=== PATIENT | female | born 1975 | race Caucasian/White ===

== ENCOUNTER 2017-03-12 20:55 | Inpatient (IN) | payer OTHER ==
--- NOTE | 2017-03-12 21:36 | ED ---
Lower Extremity Injury HPI - General Chief Complaint: Extremity Injury, Lower Stated Complaint: Swollen foot Time Seen by Provider: 03/12/17 21:06 Source: patient, family Mode of arrival: wheelchair Limitations: no limitations - History of Present Illness Initial Comments: This patient is a 41-year-old woman presenting with complaint of right foot pain and swelling. This was all brought on after she stepped on a toothpick on Tuesday. She sustained a puncture to the plantar aspect of the right foot below the third MCP joint. She states that over the interim she has had increasing pain and swelling. She was seen at the clinic yesterday and she was started on Bactrim. She has been taking ibuprofen for pain. She states that despite these measures she has had increasing pain and swelling. She has not noticed fever, chest pain, shortness of breath, palpitations or any other systemic symptoms. MD Complaint: foot injury Onset/Timin -: days(s) Injury: Foot: Right Type of Injury: puncture wound Place: home Severity: severe Improves With: NSAID Worsens With: weight bearing Context: other Associated Symptoms: able to partially bear weight Treatments Prior to Arrival: NSAIDS, other (Antibiotic) - Related Data Allergies Allergy/AdvReac Type Severity Reaction Status Date / Time prochlorperazine Allergy Unknown Verified 03/12/17 21:04 [From Compazine] prochlorperazine edisylate Allergy Unknown Verified 03/12/17 21:04 [From Compazine] prochlorperazine maleate Allergy Unknown Verified 03/12/17 21:04 [From Compazine] Review of Systems ROS Statement: Those systems with pertinent positive or pertinent negative responses have been documented in the HPI. ROS Other: All systems not noted in ROS Statement are negative. Constitutional: Denies: fever, chills Respiratory: Denies: cough, dyspnea Cardiovascular: Denies: chest pain, palpitations Musculoskeletal: Reports: as per HPI, joint swelling, arthralgia Skin: Reports: lesions, change in color (Erythema) Neurological: Denies: weakness, numbness, paresthesias Past Medical History Past Medical History: Fibromyalgia History of Any Multi-Drug Resistant Organisms: None Reported Past Surgical History: Section, Orthopedic Surgery Additional Past Surgical History / Comment(s): right knee sx, joint disorder Past Psychological History: Depression Smoking Status: Current every day smoker Past Alcohol Use History: None Reported Past Drug Use History: None Reported General Exam Limitations: no limitations General appearance: alert, in no apparent distress Head exam: Present: atraumatic, normocephalic Respiratory exam: Present: normal lung sounds bilaterally. Absent: respiratory distress, wheezes, rales, rhonchi, stridor Cardiovascular Exam: Present: regular rate, normal rhythm, normal heart sounds, other (Pedal pulses and capillary refill to the right foot normal). Absent: systolic murmur, diastolic murmur, rubs, gallop Extremities exam: Present: tenderness, normal capillary refill. Absent: pedal edema, calf tenderness Right Knee exam: Present: normal inspection Lower Leg exam: Present: normal inspection Ankle exam: Present: normal inspection Foot/Toe exam: Present: tenderness, swelling, puncture wound Neurovascular tendon exam: Present: no vascular compromise. Absent: pulse deficit, abnormal cap refill, motor deficit, sensory deficit, pallor Neurological exam: Present: alert. Absent: motor sensory deficit Skin exam: Present: warm, dry, erythema Course Vital Signs 03/12/17 03/12/17 03/13/17 21:01 22:47 00:23 Temperature 94 F L 99.1 F 98.0 F Pulse Rate 94 80 Respiratory 18 18 Rate Blood Pressure 133/81 129/72 O2 Sat by Pulse 100 100 Oximetry 03/13/17 02:07 Temperature 98.7 F Pulse Rate 89 Respiratory 18 Rate Blood Pressure 115/64 O2 Sat by Pulse 100 Oximetry Medical Decision Making - Medical Decision Making This patient is a 41-year-old woman with puncture wound to the right foot with significant infection. She is started on antibiotics and analgesic medicine. I did attempt to on roof the pus collection. The patient did have difficulty tolerating this as her foot is tender even to the lightest of touch. Eye clean the skin. Using a scalpel I unroofed the pus collection through the necrotic epidermal layer. There was probably 2-3 mL of pus that drained immediately, the patient did not tolerate attempt to express further pus. Nursing staff then had patient soak her foot. - Lab Data Result diagrams: 03/12/17 22:32 03/12/17 22:32 Lab Results 03/12/17 03/12/17 03/12/17 Range/Units 22:32 22:32 22:32 WBC 17.5 H (3.8-10.6) k/uL RBC 4.57 (3.80-5.40) m/uL Hgb 14.3 (11.4-16.0) gm/dL Hct 42.1 (34.0-46.0) % MCV 92.2 (80.0-100.0) fL MCH 31.2 (25.0-35.0) pg MCHC 33.9 (31.0-37.0) g/dL RDW 12.1 (11.5-15.5) % Plt Count 288 (150-450) k/uL Neutrophils % 83 % Lymphocytes % 10 % Monocytes % 5 % Eosinophils % 1 % Basophils % 0 % Neutrophils # 14.5 H (1.3-7.7) k/uL Lymphocytes # 1.8 (1.0-4.8) k/uL Monocytes # 0.8 (0-1.0) k/uL Eosinophils # 0.2 (0-0.7) k/uL Basophils # 0.1 (0-0.2) k/uL ESR 60 H (0-20) mm/hr Sodium 143 (137-145) mmol/L Potassium 3.8 (3.5-5.1) mmol/L Chloride 106 (98-107) mmol/L Carbon Dioxide 24 (22-30) mmol/L Anion Gap 13 mmol/L BUN 7 (7-17) mg/dL Creatinine 0.90 (0.52-1.04) mg/dL Est GFR (MDRD) Af Amer >60 (>60 ml/min/1.73 sqM) Est GFR (MDRD) Non-Af >60 (>60 ml/min/1.73 sqM) Glucose 88 (74-99) mg/dL Lactic Ac Sepsis Rflx Plasma Lactic Acid German 2.4 H* (0.7-2.0) mmol/L Calcium 10.2 (8.4-10.2) mg/dL 03/12/17 Range/Units 23:35 WBC (3.8-10.6) k/uL RBC (3.80-5.40) m/uL Hgb (11.4-16.0) gm/dL Hct (34.0-46.0) % MCV (80.0-100.0) fL MCH (25.0-35.0) pg MCHC (31.0-37.0) g/dL RDW (11.5-15.5) % Plt Count (150-450) k/uL Neutrophils % % Lymphocytes % % Monocytes % % Eosinophils % % Basophils % % Neutrophils # (1.3-7.7) k/uL Lymphocytes # (1.0-4.8) k/uL Monocytes # (0-1.0) k/uL Eosinophils # (0-0.7) k/uL Basophils # (0-0.2) k/uL ESR (0-20) mm/hr Sodium (137-145) mmol/L Potassium (3.5-5.1) mmol/L Chloride (98-107) mmol/L Carbon Dioxide (22-30) mmol/L Anion Gap mmol/L BUN (7-17) mg/dL Creatinine (0.52-1.04) mg/dL Est GFR (MDRD) Af Amer (>60 ml/min/1.73 sqM) Est GFR (MDRD) Non-Af (>60 ml/min/1.73 sqM) Glucose (74-99) mg/dL Lactic Ac Sepsis Rflx Y Plasma Lactic Acid German (0.7-2.0) mmol/L Calcium (8.4-10.2) mg/dL Disposition Clinical Impression: Puncture wound, Foot infection Disposition: ADMITTED IP TO THIS HOSP Condition: Fair Referrals: Gladis Bertrand DO [Primary Care Provider] - 1-2 days
--- NOTE | 2017-03-12 22:20 | XR ---
EXAMINATION TYPE: XR foot limited RT DATE OF EXAM: 03/12/2017 COMPARISON: NONE HISTORY: 41-year-old female stepped on toothpick yesterday, increased redness and swelling, rule out foreign body TECHNIQUE: 2 views FINDINGS: There appears to be soft tissue swelling along the ball of the foot. No radiopaque foreign body is id entified. Tiny plantar calcaneal spur. No acute fracture, subluxation, or dislocation. IMPRESSION: Soft tissue swelling along the ball of the foot. No radiopaque retained foreign body is identified. N o acute osseous abnormality seen. If there is persistent clinical concern for retained wood fragment, consider targeted ultrasound.
[2017-03-12] MEDS ORDERED: IV VANCOMYCIN PER PHARMACY 1 EACH MISC MISCELLANE PRN (22:28)
[2017-03-12] MEDS ORDERED: SODIUM CHLORIDE 0.9% 500 ML IV STA (22:28)
[2017-03-12] MEDS ORDERED: MORPHINE SULFATE 4 MG/ML SYRINGE IV STA (22:28)
[2017-03-12] MEDS ORDERED: PIPERACILLIN-TAZOBACTAM 3.375 GM in DEXTROSE/WATER 1 50ML.BAG IVPB STA (22:28)
[2017-03-12 22:59] LABS: Basophils # (A) 0.1 k/uL (0-0.2); Basophils % (A) 0 %; CH 30.8; CHCM 33.5; Eosinophils # (A) 0.2 k/uL (0-0.7); Eosinophils % (A) 1 %; HCT 42.1 % (34.0-46.0); HGB 14.3 gm/dL (11.4-16.0); Luc # (Auto) 0.14; Luc % (Auto) 1; Lymphocytes # (A) 1.8 k/uL (1.0-4.8); Lymphocytes % (A) 10 %; MCH 31.2 pg (25.0-35.0); MCHC 33.9 g/dL (31.0-37.0); MCV 92.2 fL (80.0-100.0); Mean Platelet Volume 7.4; Monocytes # (A) 0.8 k/uL (0-1.0); Monocytes % (A) 5 %; Neutrophils # (A) 14.5 k/uL (1.3-7.7); Neutrophils % (A) 83 %; RBC 4.57 m/uL (3.80-5.40); RDW 12.1 % (11.5-15.5); WBC 17.5 k/uL (3.8-10.6); WBC (Perox) 17.66
[2017-03-12] MEDS ORDERED: VANCOMYCIN 1,000 MG in SODIUM CHLORIDE 0.9% 250 ML IVPB ONE (23:00)
[2017-03-12 23:07] LABS: Anion Gap 13 mmol/L; Blood Urea Nitrogen 7 mg/dL (7-17); Calcium 10.2 mg/dL (8.4-10.2); Carbon Dioxide 24 mmol/L (22-30); Chloride 106 mmol/L (98-107); Glucose 88 mg/dL (74-99); Non-African American GFR(MDRD) >60 (>60 ml/min/1.73 sqM); Potassium 3.8 mmol/L (3.5-5.1); Sodium 143 mmol/L (137-145)
[2017-03-12 23:44] LABS: Erythrocyte Sedimentation Rate 60 mm/hr (0-20)
[2017-03-13] MEDS ORDERED: SODIUM CHLORIDE 0.9% 1,000 ML IV ONE (00:13)
[2017-03-13] MEDS ORDERED: MORPHINE SULFATE 4 MG/ML SYRINGE IV STA (01:53)
[2017-03-13] MEDS ORDERED: VANCOMYCIN 1,000 MG in SODIUM CHLORIDE 0.9% 250 ML IVPB ONE (03:00)
[2017-03-13] MEDS ORDERED: NALOXONE 0.4 MG/ML 1 ML VIAL IV PRN (04:08)
[2017-03-13] MEDS ORDERED: ACETAMINOPHEN TAB 325 MG TAB PO PRN (04:08)
[2017-03-13] MEDS: MORPHINE SULFATE 4 MG/ML SYRINGE IV PRN ×2 (05:34→09:26)
[2017-03-13] MEDS: SODIUM CHLORIDE 0.9% 1,000 ML IV SCH ×3 (05:36→21:34)
[2017-03-13] MEDS: PIPERACILLIN-TAZOBACTAM 3.375 GM in DEXTROSE/WATER 1 50ML.BAG IVPB SCH ×2 (07:33→17:14)
[2017-03-13] MEDS: FAMOTIDINE 20 MG TAB PO SCH ×2 (07:40→21:33)
--- NOTE | 2017-03-13 09:53 | P.HPIM ---
History of Present Illness H&P Date: 03/13/17 This patient is a 41-year-old woman presenting with complaint of right foot pain and swelling. This was all brought on after she stepped on a toothpick on Tuesday. She sustained a puncture to the plantar aspect of the right foot below the third MCP joint. She states that she had increasing pain and swelling. She was seen at the clinic yesterday and she was started on Bactrim. She has been taking ibuprofen for pain. She states that despite these measures she has had increasing pain and swelling. She has not noticed fever, chest pain, shortness of breath, palpitations or any other systemic symptoms. In the emergency room patient was seen and evaluated, she had incision and drainage of her foot pulse collection by emergency room physician she was started on IV Zosyn and IV vancomycin and was admitted to medical floor. Surgical consultation was requested in the emergency room Past Medical History Past Medical History: Fibromyalgia Additional Past Medical History / Comment(s): TMJ, hyper mobile joint disorder History of Any Multi-Drug Resistant Organisms: None Reported Past Surgical History: Section, Orthopedic Surgery Additional Past Surgical History / Comment(s): right knee sx, joint disorder Past Anesthesia/Blood Transfusion Reactions: No Reported Reaction Past Psychological History: No Psychological Hx Reported, Depression Smoking Status: Current every day smoker Past Alcohol Use History: None Reported Past Drug Use History: None Reported - Past Family History Father Family Medical History: Asthma, Cancer Additional Family Medical History / Comment(s): two types of cancer Mother Family Medical History: Myocardial Infarction ([place]) Additional Family Medical History / Comment(s): from heart attack Medications and Allergies Home Medications Medication Instructions Recorded Confirmed Type Pseudoephedrine HCl [Sudafed] 30 mg PO Q4HR PRN 03/13/17 03/13/17 History Allergies Allergy/AdvReac Type Severity Reaction Status Date / Time prochlorperazine Allergy Unknown Verified 03/13/17 08:22 [From Compazine] prochlorperazine edisylate Allergy Unknown Verified 03/13/17 08:22 [From Compazine] prochlorperazine maleate Allergy Unknown Verified 03/13/17 08:22 [From Compazine] Physical Exam Vitals: Vital Signs Temp Pulse Pulse Resp BP BP BP 03/13/17 07:29 98 F 73 16 104/57 03/13/17 05:13 97.9 F 61 16 116/78 03/13/17 04:45 98.5 F 71 18 114/67 03/13/17 02:07 98.7 F 89 18 115/64 03/13/17 00:23 98.0 F 80 18 129/72 03/12/17 22:47 99.1 F 03/12/17 21:01 94 F L 94 18 133/81 Pulse Ox 03/13/17 07:29 97 03/13/17 05:13 96 03/13/17 04:45 100 03/13/17 02:07 100 03/13/17 00:23 100 03/12/17 22:47 03/12/17 21:01 100 Intake and Output 03/12/17 03/13/17 03/13/17 22:59 06:59 14:59 Intake Total 1200 Balance 1200 Intake: Amount of Fluid Infused ( 1200 ml) Other: # Voids 1 Weight 58.967 kg In general patient is alert and oriented 3 in no apparent distress HEENT head normocephalic and atraumatic Neck is supple no JVD no goiter no lymphadenopathy Chest exam is clear to auscultation no crackles no wheezing Cardiac exam reveals regular heart sounds S1 and S2 no gallops no murmurs Abdomen is soft nontender no organomegaly with normal bowel sounds Extremity exam reveals no edema no cyanosis or clubbing Right foot exam reveals a puncture wound in the plantar aspect of the right foot below the third MCP joint Results CBC & Chem 7: 03/12/17 22:32 03/12/17 22:32 Labs: Abnormal Lab Results - Last 24 Hours (Table) 03/12/17 03/12/17 03/13/17 Range/Units 22:32 22:32 04:02 WBC 17.5 H (3.8-10.6) k/uL Neutrophils # 14.5 H (1.3-7.7) k/uL ESR 60 H (0-20) mm/hr Plasma Lactic Acid German 2.4 H* 0.6 L (0.7-2.0) mmol/L Thrombosis Risk Factor Assmnt - Choose All That Apply Any of the Below Risk Factors Present?: No Other congenital or acquired thrombophilia - If yes, enter type in comment: No Assessment and Plan Plan: #1 right foot cellulitis post acute puncture wound to the plantar aspect of the right foot, there is evidence of sepsis was elevated white blood count of 17.5 and elevated lactic acid at 2.4 on presentation. There is evidence of abscess was possible collection in the foot. At this time plan is to continue with IV Zosyn and IV vancomycin awaiting culture results Surgical consultation and infectious disease consultation are following #2 underlying history of tobacco abuse patient was counseled to quit smoking
--- NOTE | 2017-03-13 10:12 | P.PN ---
Progress Note - Text Consulted general surgery for right plantar foot infection. Please defer to vascular surgery Dr. Heredia or Orthopedics. Thank you
[2017-03-13] MEDS: VANCOMYCIN 1,000 MG in SODIUM CHLORIDE 0.9% 250 ML IVPB SCH (11:30)
[2017-03-13] MEDS: ONDANSETRON 4 MG/2 ML VIAL IVP PRN ×2 (11:30→20:53)
[2017-03-13] MEDS: HYDROmorphone 1 MG/ML 1 ML SYRINGE IVP PRN ×2 (11:48→17:14)
--- NOTE | 2017-03-13 13:57 | P.CNOR ---
History of Present Illness - HPI Consult date: 03/13/17 History of present illness: This is a pleasant 41-year-old female who is admitted for right foot infection. Orthopedics is consulted for further evaluation. Patient states one week ago she stepped on a toothpick at home. Patient states her removed the toothpick and they believe they removed the entire thing. Patient states she was in a lot of pain and was unable to walk on the right foot. Patient noticed increasing swelling and redness over the next few days and presented to an urgent care clinic on 03/11/2017. The patient was put on Bactrim at this point was told to follow-up in the ER if her symptoms do not improve by the next day. Patient presented to the on 03/12/2017. A bedside I&D was attempted but patient could not tolerate this due to the pain. Patient was admitted for IV antibiotics, infectious disease and surgical consult. Patient denies any fever/chills, numbness, weakness, tingling. Patient denies any history of MRSA. Patient is a smoker. Patient does admit to some mild nausea. Patient states her tetanus shot was updated on Tuesday at the urgent care clinic. Review of Systems See HPI. Past Medical History Past Medical History: Fibromyalgia Additional Past Medical History / Comment(s): TMJ, hyper mobile joint disorder History of Any Multi-Drug Resistant Organisms: None Reported Past Surgical History: Section, Orthopedic Surgery Additional Past Surgical History / Comment(s): right knee sx, joint disorder Past Anesthesia/Blood Transfusion Reactions: No Reported Reaction Past Psychological History: No Psychological Hx Reported, Depression Smoking Status: Current every day smoker Past Alcohol Use History: None Reported Past Drug Use History: None Reported - Past Family History Father Family Medical History: Asthma, Cancer Additional Family Medical History / Comment(s): two types of cancer Mother Family Medical History: Myocardial Infarction ([place]) Additional Family Medical History / Comment(s): from heart attack Medications and Allergies Home Medications Medication Instructions Recorded Confirmed Type Pseudoephedrine HCl [Sudafed] 30 mg PO Q4HR PRN 03/13/17 03/13/17 History Allergies Allergy/AdvReac Type Severity Reaction Status Date / Time prochlorperazine Allergy Unknown Verified 03/13/17 08:22 [From Compazine] prochlorperazine edisylate Allergy Unknown Verified 03/13/17 08:22 [From Compazine] prochlorperazine maleate Allergy Unknown Verified 03/13/17 08:22 [From Compazine] Physical Examination On inspection there is swelling to the dorsal and plantar aspects of the right foot. There is erythema and induration to the ball of the right foot just below the third MTP joint. There is purulent drainage from a puncture wound in this area. This area is very sensitive to light touch. Patient is able to move the right toes but this causes pain. Sensation intact to the right foot and toes. Dorsalis pedis and posterior tibial pulses are 2+. Neurovascular status of the right lower extremity is intact. Results X-rays the right foot were reviewed showing soft tissue swelling. No foreign body, fracture or dislocation. - Labs Labs: Abnormal Lab Results - Last 24 Hours (Table) 03/12/17 03/12/17 03/13/17 Range/Units 22:32 22:32 04:02 WBC 17.5 H (3.8-10.6) k/uL Neutrophils # 14.5 H (1.3-7.7) k/uL ESR 60 H (0-20) mm/hr Plasma Lactic Acid German 2.4 H* 0.6 L (0.7-2.0) mmol/L H & H 03/12/17 Range/Units 22:32 Hgb 14.3 (11.4-16.0) gm/dL Hct 42.1 (34.0-46.0) % Result Diagrams: 03/12/17 22:32 03/12/17 22:32 Assessment and Plan (1) Foot infection Status: Acute (2) Puncture wound Status: Acute (3) Abscess of right foot Status: Acute Plan: #1. Continue IV antibiotics and pain control. #2. Warm compresses to the right foot. #3. Continue to elevate the right lower extremity. #4. Infectious disease consult pending. #5. Nothing by mouth after midnight. #6. No surgical intervention planned at this time. If patient does not show significant improvement she may need an I&D procedure tomorrow. #7. Will continue to follow patient closely.
[2017-03-13] MEDS ORDERED: KETOROLAC 30 MG/ML 1 ML VIAL IVP SCH (17:17)
[2017-03-13] MEDS: KETOROLAC 30 MG/ML 1 ML VIAL IVP SCH (17:34)
--- NOTE | 2017-03-13 23:02 | P.CONS ---
History of Present Illness - Reason for Consult Consult date: 03/13/17 - Chief Complaint Pain right foot - History of Present Illness 41-year-old woman presents to the emergency center with a several-day history of increasing pain to the right foot. The patient relates that the carpeted floor she stepped on a toothpick. The patient's was able to extract the tooth pick. If her stay and thought they had gotten the whole thing. However now that they've thought about [place] as an carpeted. They really do not know how much was present and if they have truly extracted the entire foreign body. The patient presented hospital because she was no longer able to walk on the foot because it was so painful. Presented to Hospital gives her great challenges because they have a 13-year-old son who is profoundly mentally challenged. Fortunately the patient's and multiple family members living with them and can help with care. Patient has fibromyalgia and is in severe pain with the foot injury. It is starting to drain. The foot is very swollen and has intense pain upon manipulation. She had a low-grade fever. Been no chill or rigor. She's not had a problem like this in the past. Review of Systems Patient has had subjective fever and chills without sweats HEENT:Denies headache or acute visual change. Denies sinus or mouth discomforts. Denies neck stiffness or pain. Denies significant oral cavity pain. Denies difficulty on swallowing. Lungs: Denies change of shortness of breath, cough, sputum production, or hemoptysis. She is a chronic smoker Cardiovascular: Denies significant shortness of breath, chest pain, chest wall pain, orthopnea, dyspnea on exertion, syncope Gastrointestinal:Denies nausea, vomiting, diarrhea, constipation, hematemesis, melena, hematochezia. No no significant change of bowel habit noticed. Musculoskeletal: As for myalgia with chronic pain and severe pain to her right foot is noted in the HPI Skin: Wound right foot Neuro: Denies headache or visual change. Denies any new onset weakness or difficulty with ambulation. Denies falls or seizures. Psychiatric: Chronic anxiety Endocrine: Chronic fatigue fatigue, denies significant weight loss or weight gain. Past Medical History Past Medical History: Fibromyalgia Additional Past Medical History / Comment(s): TMJ, hyper mobile joint disorder History of Any Multi-Drug Resistant Organisms: None Reported Past Surgical History: Section, Orthopedic Surgery Additional Past Surgical History / Comment(s): right knee sx, joint disorder Past Anesthesia/Blood Transfusion Reactions: No Reported Reaction Past Psychological History: No Psychological Hx Reported, Depression Additional Psychological History / Comment(s): and lives in the family home with her , her son and multiple other family members. She is a primary caregiver of her son. Ongoing tobacco user. Denies alcohol use or recreational drug use. No experience. No international travel. No animal exposures Smoking Status: Current every day smoker Past Alcohol Use History: None Reported Past Drug Use History: None Reported - Past Family History Father Family Medical History: Asthma, Cancer Additional Family Medical History / Comment(s): two types of cancer Mother Family Medical History: Myocardial Infarction ([place]) Additional Family Medical History / Comment(s): from heart attack Medications and Allergies Home Medications and Allergies Comment(s): Current Medications Acetaminophen (Tylenol Tab) 650 mg PO Q6HR PRN PRN Reason: Mild Pain or Fever > 100.5 Famotidine (Pepcid) 20 mg PO BID [facility] Last Admin: 03/13/17 21:33 Dose: 20 mg Hydromorphone HCl (Dilaudid) 1 mg IVP Q3HR PRN PRN Reason: Severe Pain Last Admin: 03/13/17 17:14 Dose: 1 mg Sodium Chloride (Saline 0.9%) 1,000 mls @ 125 mls/hr IV .Q8H [facility] Last Admin: 03/13/17 21:34 Dose: 125 mls/hr Piperacillin/Tazobactam/ (Dextrose 3.375 gm/ IV Solution) 50 mls @ 12.5 mls/hr IVPB Q8HR [facility] Last Admin: 03/13/17 17:14 Dose: 12.5 mls/hr Vancomycin HCl 1,000 mg/ (Sodium Chloride) 250 mls @ 125 mls/hr IVPB Q16H [facility] Last Admin: 03/13/17 11:30 Dose: 125 mls/hr Ketorolac Tromethamine (Toradol) 30 mg IVP Q6HR [facility] Stop: 03/18/17 18:01 Last Admin: 03/13/17 17:34 Dose: 30 mg Naloxone HCl (Narcan) 0.2 mg IV Q2M PRN PRN Reason: Opioid Reversal Ondansetron HCl (Zofran) 4 mg IVP Q8HR PRN PRN Reason: Nausea And Vomiting Last Admin: 03/13/17 20:53 Dose: 4 mg Home Medications Medication Instructions Recorded Confirmed Type Pseudoephedrine HCl [Sudafed] 30 mg PO Q4HR PRN 03/13/17 03/13/17 History Allergies Allergy/AdvReac Type Severity Reaction Status Date / Time prochlorperazine Allergy Unknown Verified 03/13/17 08:22 [From Compazine] prochlorperazine edisylate Allergy Unknown Verified 03/13/17 08:22 [From Compazine] prochlorperazine maleate Allergy Unknown Verified 03/13/17 08:22 [From Compazine] Physical Exam Vitals: Vital Signs Temp Pulse Pulse Pulse Pulse Resp BP 03/13/17 20:27 98.4 F 61 16 03/13/17 15:00 98.8 F 64 16 03/13/17 07:29 98 F 73 16 03/13/17 05:13 97.9 F 61 16 03/13/17 04:45 98.5 F 71 18 114/67 03/13/17 02:07 98.7 F 89 18 115/64 03/13/17 00:23 98.0 F 80 18 129/72 BP BP Pulse Ox 03/13/17 20:27 95/48 95 03/13/17 15:00 99/51 99 03/13/17 07:29 104/57 97 03/13/17 05:13 116/78 96 03/13/17 04:45 100 03/13/17 02:07 100 03/13/17 00:23 100 Intake and Output 03/13/17 03/13/17 03/13/17 06:59 14:59 22:59 Intake Total 1200 1000 Balance 1200 1000 Intake: IV 1000 Sodium Chloride 0.9% 1, 1000 000 ml @ 125 mls/hr IV . Q8H [facility] Rx#:[id number] Amount of Fluid Infused ( 1200 ml) Other: # Voids 1 HEENT: Anicteric conjunctiva are pink and moist nasal mucosa grossly intact without significant lesions, there is no thrush. Neck: The neck is supple without significant lymphadenopathy or thyromegaly. Lungs: Good bilateral air entry without significant crackles few scattered wheezes. There is no significant bronchial sounds. There is no egophony or dullness. Heart: Regular rate and rhythm with an audible S1-S2, no S3 no S4. There is no significant murmur click or rub, PMI was nondisplaced. Abdomen: Positive bowel sounds soft and nontender without palpable masses or organomegaly. There was no guarding or rebound. Extremities: The upper extremities have excellent pulses they are symmetric, no significant petechiae or telangiectasia. No splinter hemorrhages were noted. Left lower extremity is normal. Right low she wishes of the significant swelling of the plantar surface of the foot near the fourth metatarsal. Is an area of fluctuance that has a scant amount of seropurulent drainage. The foot itself is mildly swollen. There however is not a significant area of ascending erythema Neuro: Awake alert oriented to person place and time. There are no acute new gross focal sensory motor deficits. Results CBC & Chem 7: 03/12/17 22:32 03/12/17 22:32 Labs: Abnormal Lab Results - Last 24 Hours (Table) 03/12/17 03/12/17 03/13/17 Range/Units 22:32 22:32 04:02 WBC 17.5 H (3.8-10.6) k/uL Neutrophils # 14.5 H (1.3-7.7) k/uL ESR 60 H (0-20) mm/hr Plasma Lactic Acid German 2.4 H* 0.6 L (0.7-2.0) mmol/L Microbiology - Last 24 Hours (Table) 03/13/17 17:35 Wound Culture - Preliminary Foot - Right Laboratory Results WBC 17.5 k/uL (3.8-10.6) H 03/12/17 22:32 RBC 4.57 m/uL (3.80-5.40) 03/12/17 22:32 Hgb 14.3 gm/dL (11.4-16.0) 03/12/17 22:32 Hct 42.1 % (34.0-46.0) 03/12/17 22:32 MCV 92.2 fL (80.0-100.0) 03/12/17 22:32 MCH 31.2 pg (25.0-35.0) 03/12/17 22: MCHC 33.9 g/dL (31.0-37.0) 03/12/17 22:32 RDW 12.1 % (11.5-15.5) 03/12/17 22:32 Plt Count 288 k/uL (150-450) 03/12/17 22:32 Neutrophils % 83 % 03/12/17 22:32 Lymphocytes % 10 % 03/12/17 22:32 Monocytes % 5 % 03/12/17 22:32 Eosinophils % 1 % 03/12/17 22:32 Basophils % 0 % 03/12/17 22:32 Neutrophils # 14.5 k/uL (1.3-7.7) H 03/12/17 22:32 Lymphocytes # 1.8 k/uL (1.0-4.8) 03/12/17 22:32 Monocytes # 0.8 k/uL (0-1.0) 03/12/17 22:32 Eosinophils # 0.2 k/uL (0-0.7) 03/12/17 22:32 Basophils # 0.1 k/uL (0-0.2) 03/12/17 22:32 ESR 60 mm/hr (0-20) H 03/12/17 22:32 Sodium 143 mmol/L (137-145) 03/12/17 22:32 Potassium 3.8 mmol/L (3.5-5.1) 03/12/17 22:32 Chloride 106 mmol/L (98-107) 03/12/17 22:32 Carbon Dioxide 24 mmol/L (22-30) 03/12/17 22:32 Anion Gap 13 mmol/L 03/12/17 22:32 BUN 7 mg/dL (7-17) 03/12/17 22:32 Creatinine 0.90 mg/dL (0.52-1.04) 03/12/17 22:32 Est GFR (MDRD) Af Amer >60 (>60 ml/min/1.73 sqM) 03/12/17 22:32 Est GFR (MDRD) Non-Af >60 (>60 ml/min/1.73 sqM) 03/12/17 22:32 Glucose 88 mg/dL (74-99) 03/12/17 22:32 Lactic Ac Sepsis Rflx Y 03/12/17 23:35 Plasma Lactic Acid German 0.6 mmol/L (0.7-2.0) L 03/13/17 04:02 Calcium 10.2 mg/dL (8.4-10.2) 03/12/17 22:32 Microbiology 03/13/17 17:35 Foot - Right Wound Culture - Preliminary Assessment and Plan (1) Abscess of right foot Status: Acute (2) Splinter of foot without major open wound with infection Narrative/Plan: 41-year-old female presents to Hospital status post stepping on a toothpick. It first about a completely extracted the tooth pick. But it was in a carpet and they're actually unsure of how much invaded her body. In unsure how much they were able to remove. She has been seen by surgery. If she is not improved in the morning which I suspect will be the case she will then be taken every room for an incision and drainage of the foot. There is some drainage site cultures obtained. Antimicrobial therapy with Zosyn and vancomycin are being utilized with concerns for gram-negative infections related to the floor including enteric pathogens as well as staph and strep such as MRSA. Elevation of the limb at rest. Pain control be enhance with addition of Toradol. Local wound care as a dry dressing for now. She is offloaded as much as she can until her likely surgical intervention tomorrow. Status: Acute (3) Leukocytosis Status: Acute
[2017-03-14] MEDS: KETOROLAC 30 MG/ML 1 ML VIAL IVP SCH ×4 (00:47→19:37)
[2017-03-14] MEDS: PIPERACILLIN-TAZOBACTAM 3.375 GM in DEXTROSE/WATER 1 50ML.BAG IVPB SCH ×3 (00:48→19:28)
[2017-03-14] MEDS: VANCOMYCIN 1,000 MG in SODIUM CHLORIDE 0.9% 250 ML IVPB SCH ×2 (04:17→15:03)
[2017-03-14] MEDS: SODIUM CHLORIDE 0.9% 1,000 ML IV SCH ×3 (04:18→19:38)
[2017-03-14 07:14] LABS: Anion Gap 9 mmol/L; Blood Urea Nitrogen 8 mg/dL (7-17); Calcium 8.7 mg/dL (8.4-10.2); Carbon Dioxide 20 mmol/L (22-30); Chloride 111 mmol/L (98-107); Glucose 52 mg/dL (74-99); Non-African American GFR(MDRD) >60 (>60 ml/min/1.73 sqM); Potassium 3.9 mmol/L (3.5-5.1); Sodium 140 mmol/L (137-145)
[2017-03-14 07:20] LABS: Basophils % (A) 0 %; CH 31.4; CHCM 32.8; Eosinophils # (A) 0.1 k/uL (0-0.7); Eosinophils % (A) 1 %; HCT 32.2 % (34.0-46.0); HDW 2.51; Luc # (Auto) 0.14; Luc % (Auto) 2; Lymphocytes # (A) 1.6 k/uL (1.0-4.8); Lymphocytes % (A) 22 %; MCH 30.6 pg (25.0-35.0); MCHC 31.9 g/dL (31.0-37.0); MCV 96.2 fL (80.0-100.0); Monocytes # (A) 0.5 k/uL (0-1.0); Monocytes % (A) 6 %; Neutrophils % (A) 69 %; RBC 3.35 m/uL (3.80-5.40); WBC 7.2 k/uL (3.8-10.6); WBC (Perox) 7.28
[2017-03-14 07:26] LABS: HGB 10.3 gm/dL (11.4-16.0)
[2017-03-14] MEDS: FAMOTIDINE 20 MG TAB PO SCH ×2 (07:26→21:22)
--- NOTE | 2017-03-14 09:58 | P.PN ---
Subjective Principal diagnosis: Right foot infection, puncture wound, abscess this is a pleasant 41-year-old female who is admitted for right foot infection. Patient states her pain is well-controlled today. Patient states she is still feeling nauseous. Patient denies any numbness, weakness tingling, fever/ chills. Patient has no new complaints today. Objective - Vital Signs Vital signs: Vital Signs Temp 97.7 F 03/14/17 07:31 Pulse 73 03/14/17 07:50 Resp 16 03/14/17 07:31 BP 96/60 03/14/17 07:31 Pulse Ox 100 03/14/17 07:31 Intake & Output 03/13/17 03/14/17 03/14/17 18:59 06:59 18:59 Intake Total 1000 1500 Balance 1000 1500 Intake: IV 1000 1500 Sodium Chloride 0.9% 1, 1000 1500 000 ml @ 125 mls/hr IV . Q8H [facility] Rx#:[id number] Other: Voiding Method Toilet # Voids 1 2 - Exam On exam patient is alert and oriented 3 and is in no acute distress. There is swelling, erythema and induration to the ball of the right foot surrounding a puncture wound that is draining. There is no increasing surrounding erythema. The area is very tender to palpation. Patient is able to move the toes and patient has full foot and ankle motion. Posterior tibial and dorsalis pedis pulses are 2+. Neurovascular status is intact. - Labs CBC & Chem 7: 03/14/17 06:35 03/14/17 06:35 Labs: Abnormal Lab Results - Last 24 Hours (Table) 03/14/17 03/14/17 Range/Units 06:35 06:35 RBC 3.35 L (3.80-5.40) m/uL Hgb 10.3 L D (11.4-16.0) gm/dL Hct 32.2 L (34.0-46.0) % Chloride 111 H (98-107) mmol/L Carbon Dioxide 20 L (22-30) mmol/L Glucose 52 L (74-99) mg/dL Microbiology - Last 24 Hours (Table) 03/13/17 17:35 Gram Stain - Preliminary Foot - Right Wound Culture - Preliminary Assessment and Plan (1) Foot infection Status: Acute (2) Puncture wound Status: Acute (3) Abscess of right foot Status: Acute Plan: #1. Continue IV antibiotics and pain control. #2. Warm compresses to the right foot. #3. Continue to elevate the right lower extremity. #4. Appreciate input from infectious disease #5. Continue NPO #6. I&D of right foot scheduled for today. Consent pending. #7. Will continue to follow patient closely.
--- NOTE | 2017-03-14 10:01 | P.PN ---
Subjective This patient is a 41-year-old woman presenting with complaint of right foot pain and swelling. This was all brought on after she stepped on a toothpick on Tuesday. She sustained a puncture to the plantar aspect of the right foot below the third MCP joint. She states that she had increasing pain and swelling. She was seen at the clinic yesterday and she was started on Bactrim. She has been taking ibuprofen for pain. She states that despite these measures she has had increasing pain and swelling. She has not noticed fever, chest pain, shortness of breath, palpitations or any other systemic symptoms. In the emergency room patient was seen and evaluated, she had incision and drainage of her foot pulse collection by emergency room physician she was started on IV Zosyn and IV vancomycin and was admitted to medical floor. Surgical consultation was requested in the emergency room 03/14/2017 patient still having pain and swelling on the pad of her right foot. Still having some drainage. Orthopedics are planning on doing an I&D later this morning. Patient denies any chest pain or shortness of breath, nausea or any further episodes of vomiting. Last bowel movement about 3 days ago. Denies any burning with urination. Objective - Vital Signs Vital signs: Vital Signs Temp 97.7 F 03/14/17 07:31 Pulse 73 03/14/17 07:50 Resp 16 03/14/17 07:31 BP 96/60 03/14/17 07:31 Pulse Ox 100 03/14/17 07:31 Intake & Output 03/13/17 03/14/17 03/14/17 18:59 06:59 18:59 Intake Total 1000 1500 Balance 1000 1500 Intake: IV 1000 1500 Sodium Chloride 0.9% 1, 1000 1500 000 ml @ 125 mls/hr IV . Q8H [facility] Rx#:[id number] Other: Voiding Method Toilet # Voids 1 2 - Exam Head normocephalic Neck supple Lungs clear to auscultation bilaterally no wheezing or crackles Heart regular rate and rhythm S1-S2, no rub or gallop Abdomen is soft nontender nondistended positive bowel sounds no hepatosplenomegaly Extremities no edema. Patent of right foot is swollen and firm at the wound site. It is draining a lot of blood very tender with palpation. Wound is located below the third toe and third MCP joint. Neuro alert and orientated to 3 - Labs CBC & Chem 7: 08/14/17 06:35 03/14/17 06:35 Labs: Abnormal Lab Results - Last 24 Hours (Table) 03/14/17 03/14/17 Range/Units 06:35 06:35 RBC 3.35 L (3.80-5.40) m/uL Hgb 10.3 L D (11.4-16.0) gm/dL Hct 32.2 L (34.0-46.0) % Chloride 111 H (98-107) mmol/L Carbon Dioxide 20 L (22-30) mmol/L Glucose 52 L (74-99) mg/dL Microbiology - Last 24 Hours (Table) 03/13/17 17:35 Gram Stain - Preliminary Foot - Right Wound Culture - Preliminary Assessment and Plan Plan: #1 right foot cellulitis and abscess post acute puncture wound to the plantar aspect of the right foot, there is evidence of sepsis was elevated white blood count of 17.5 and elevated lactic acid at 2.4 on presentation. The Zosyn and IV vancomycin. Patient is followed by both orthopedics and infectious disease. Orthopedics planning on I&D later this morning. Patient's white count has normalized. #2 underlying history of tobacco abuse patient was counseled to quit smoking area patient refusing nicotine patch at this point #3 constipation start Colace and monitor GI prophylaxis Pepcid and holding on anticoagulation for DVT prophylaxis for surgical procedure today I performed an examination of the patient and discussed their management with the physician Chemical Dependency Therapist. I have reviewed the Physician Chemical Dependency Therapist's notes and agree with the documented findings and plan of care
[2017-03-14] MEDS ORDERED: VANCOMYCIN 1,000 MG in SODIUM CHLORIDE 0.9% 250 ML IVPB SCH (15:00)
[2017-03-14 15:16] VITALS: BMI 23.0
[2017-03-14] MEDS ORDERED: HYDROcodone/APAP 5-325MG 1 EACH TAB PO PRN (17:52)
[2017-03-14] MEDS ORDERED: PROPOFOL 10 MG/ML 20 ML VIAL IV ONE (18:07)
[2017-03-14] MEDS ORDERED: fentaNYL (PF) 50 MCG/ML 2 ML AMP ONE (18:07)
[2017-03-14] MEDS ORDERED: LIDOCAINE 1% INJ 10MG/ML (20 ML MDV) ONE (18:07)
[2017-03-14] MEDS ORDERED: MIDAZOLAM 2 MG/2 ML VIAL ONE (18:07)
[2017-03-14] MEDS ORDERED: IV FLUID CONTINUATION 1,000 ML IV ONE (18:18)
[2017-03-14] MEDS ORDERED: BUPIVACAINE (PF) 0.25% 30 ML VIAL SQ ONE (18:24)
--- NOTE | 2017-03-14 18:32 | P.OP ---
Date of Procedure: 03/14/17 Preoperative Diagnosis: Abscess right foot Postoperative Diagnosis: Abscess right foot Procedure(s) Performed: Incision and drainage right foot Implants: Anesthesia: RAMON Surgeon: Brad Becerril Estimated Blood Loss (ml): 5 Pathology: other (Cultures 2) Condition: stable Disposition: PACU Indications for Procedure: This is a 41-year-old female that stepped on a toothpick proximally 1 week ago. She was placed on antibiotics, and after failure of outpatient treatment presented to the emergency room. She was admitted for IV antibiotics, but due to the lack of progress, I have recommended an incision and drainage of the abscess. Informed consent was obtained. Operative Findings: The operative findings are consistent with an abscess on the plantar surface of the right foot. Description of Procedure: Patient was seen in the preoperative area, the operative site was marked with a skin marker. Patient was then brought to the operating room, and given 1 g of Ancef intravenously. A general anesthetic was administered by the anesthesia department. Her right foot was then prepped and draped in usual sterile fashion. A universal timeout was then performed, which confirmed the patient's name, surgical site, ALLERGIES, and consent. Next the area on the plantar surface right foot was incised over maximum fluctuance. A moderate to largde amount of purulent material was expressed. The area was then probed with a hemostat to ensure all the purulent material was evacuated. This was also cultured 2. There area was then irrigated with an Asepto syringe with antibiotic solution. The area was left open and packed and a sterile dressing was applied. The patient was then transported to recovery room in stable condition.
[2017-03-14] MEDS: HYDROcodone/APAP 5-325MG 1 EACH TAB PO PRN (21:22)
[2017-03-14] MEDS: DOCUSATE 100 MG CAP PO SCH (21:22)
--- NOTE | 2017-03-14 21:41 | P.PN ---
Subjective Principal diagnosis: Pain right foot 41-year-old woman presents to the emergency center with a several-day history of increasing pain to the right foot. The patient relates that the carpeted floor she stepped on a toothpick. The patient's was able to extract the tooth pick. If her stay and thought they had gotten the whole thing. However now that they've thought about [place] as an carpeted. They really do not know how much was present and if they have truly extracted the entire foreign body. The patient presented hospital because she was no longer able to walk on the foot because it was so painful. Presented to Hospital gives her great challenges because they have a 13-year-old son who is profoundly mentally challenged. Fortunately the patient's and multiple family members living with them and can help with care. Patient has fibromyalgia and is in severe pain with the foot injury. It is starting to drain. The foot is very swollen and has intense pain upon manipulation. She had a low-grade fever. Been no chill or rigor. She's not had a problem like this in the past. A she still quite uncomfortable. Is awaiting throughout the afternoon for incision and drainage to occur. She was going to the operative over the next few moments for the incision and drainage. Objective - Vital Signs Vital signs: Vital Signs Temp 97 F L 03/14/17 18:44 Pulse 63 03/14/17 19:11 Resp 16 03/14/17 19:11 BP 109/71 03/14/17 19:11 Pulse Ox 100 03/14/17 19:11 Intake & Output 03/14/17 03/14/17 03/15/17 06:59 18:59 06:59 Intake Total 1500 1500 50 Output Total 5 Balance 1500 1495 50 Weight 58.967 kg Intake: IV 1500 1500 50 Sodium Chloride 0.9% 1, 1500 1000 000 ml @ 125 mls/hr IV . Q8H [facility] Rx#:[id number] Output: Estimated Blood Loss 5 Other: Voiding Method Toilet # Voids 2 - Exam HEENT: Anicteric conjunctiva are pink and moist nasal mucosa grossly intact without significant lesions, there is no thrush. Neck: The neck is supple without significant lymphadenopathy or thyromegaly. Lungs: Good bilateral air entry without significant crackles few scattered wheezes. There is no significant bronchial sounds. There is no egophony or dullness. Heart: Regular rate and rhythm with an audible S1-S2, no S3 no S4. There is no significant murmur click or rub, PMI was nondisplaced. Abdomen: Positive bowel sounds soft and nontender without palpable masses or organomegaly. There was no guarding or rebound. Extremities: The upper extremities have excellent pulses they are symmetric, no significant petechiae or telangiectasia. No splinter hemorrhages were noted. Left lower extremity is normal. Right low she wishes of the significant swelling of the plantar surface of the foot near the fourth metatarsal. Is an area of fluctuance that has a scant amount of seropurulent drainage. The foot itself is mildly swollen. There however is not a significant area of ascending erythema Neuro: Awake alert oriented to person place and time. There are no acute new gross focal sensory motor deficits. - Labs CBC & Chem 7: 03/14/17 06:35 03/14/17 06:35 Labs: Abnormal Lab Results - Last 24 Hours (Table) 03/14/17 03/14/17 Range/Units 06:35 06:35 RBC 3.35 L (3.80-5.40) m/uL Hgb 10.3 L D (11.4-16.0) gm/dL Hct 32.2 L (34.0-46.0) % Chloride 111 H (98-107) mmol/L Carbon Dioxide 20 L (22-30) mmol/L Glucose 52 L (74-99) mg/dL Microbiology - Last 24 Hours (Table) 03/13/17 17:35 Gram Stain - Preliminary Foot - Right Wound Culture - Preliminary Assessment and Plan (1) Abscess of right foot Status: Acute (2) Splinter of foot without major open wound with infection Narrative/Plan: 41-year-old female presents to Hospital status post stepping on a toothpick. It first about a completely extracted the tooth pick. But it was in a carpet and they're actually unsure of how much invaded her body. In unsure how much they were able to remove. She has been seen by surgery. If she is not improved in the morning which I suspect will be the case she will then be taken every room for an incision and drainage of the foot. There is some drainage site cultures obtained. Antimicrobial therapy with Zosyn and vancomycin are being utilized with concerns for gram-negative infections related to the floor including enteric pathogens as well as staph and strep such as MRSA. Elevation of the limb at rest. Pain control be enhance with addition of Toradol. Local wound care as a dry dressing for now. She is offloaded as much as she can Owing to the operating room the next few minutes for the incision and drainage and exploration for foreign body. Continue antibiotic therapy. Still has significant pain. Status: Acute (3) Leukocytosis Status: Acute
[2017-03-14] MEDS: HYDROmorphone 1 MG/ML 1 ML SYRINGE IVP PRN (23:06)
[2017-03-15] MEDS: ONDANSETRON 4 MG/2 ML VIAL IVP PRN (00:50)
[2017-03-15] MEDS: PIPERACILLIN-TAZOBACTAM 3.375 GM in DEXTROSE/WATER 1 50ML.BAG IVPB SCH ×4 (01:22→23:34)
[2017-03-15] MEDS: KETOROLAC 30 MG/ML 1 ML VIAL IVP SCH ×5 (01:24→23:34)
[2017-03-15 04:09] VITALS: RESP 16
[2017-03-15] MEDS: SODIUM CHLORIDE 0.9% 1,000 ML IV SCH (04:59)
[2017-03-15] MEDS: VANCOMYCIN 1,000 MG in SODIUM CHLORIDE 0.9% 250 ML IVPB SCH ×2 (05:20→17:02)
[2017-03-15 08:41] LABS: Basophils % (A) 1 %; CH 31.1; CHCM 32.9; Eosinophils # (A) 0.1 k/uL (0-0.7); Eosinophils % (A) 1 %; HCT 32.6 % (34.0-46.0); HGB 10.5 gm/dL (11.4-16.0); Luc # (Auto) 0.11; Luc % (Auto) 2; Lymphocytes # (A) 1.3 k/uL (1.0-4.8); Lymphocytes % (A) 21 %; MCH 30.6 pg (25.0-35.0); MCHC 32.2 g/dL (31.0-37.0); MCV 95.1 fL (80.0-100.0); Mean Platelet Volume 8.1; Monocytes # (A) 0.4 k/uL (0-1.0); Monocytes % (A) 6 %; Neutrophils # (A) 4.2 k/uL (1.3-7.7); Neutrophils % (A) 69 %; RBC 3.43 m/uL (3.80-5.40); RDW 12.6 % (11.5-15.5)
[2017-03-15] MEDS: DOCUSATE 100 MG CAP PO SCH ×2 (08:55→22:02)
[2017-03-15] MEDS: FAMOTIDINE 20 MG TAB PO SCH ×2 (08:55→22:02)
[2017-03-15 09:13] LABS: ALT 23 U/L (9-52); AST 13 U/L (14-36); Alkaline Phosphatase 62 U/L (38-126); Anion Gap 9 mmol/L; Blood Urea Nitrogen 6 mg/dL (7-17); Calcium 8.4 mg/dL (8.4-10.2); Carbon Dioxide 18 mmol/L (22-30); Chloride 114 mmol/L (98-107); Glucose 56 mg/dL (74-99); Non-African American GFR(MDRD) >60 (>60 ml/min/1.73 sqM); Potassium 4.2 mmol/L (3.5-5.1); Sodium 141 mmol/L (137-145); Total Bilirubin 0.3 mg/dL (0.2-1.3); Total Protein 4.8 g/dL (6.3-8.2)
--- NOTE | 2017-03-15 11:52 | P.PN ---
Subjective Patient is doing fairly well today. Pain is better controlled. Objective - Vital Signs Vital signs: Vital Signs Temp 98.5 F 03/15/17 07:50 Pulse 59 L 03/15/17 08:00 Resp 16 03/15/17 08:00 BP 133/67 03/15/17 07:50 Pulse Ox 100 03/15/17 07:50 Intake & Output 03/14/17 03/15/17 03/15/17 18:59 06:59 18:59 Intake Total 1500 1225 Output Total 5 Balance 1495 1225 Weight 58.967 kg 58.967 kg Intake: IV 1500 1050 Sodium Chloride 0.9% 1, 1000 1000 000 ml @ 125 mls/hr IV . Q8H STAR Rx#:[id number] Intake, IV Titration 175 Amount Piperacillin-Tazobactam 3 50 .375 gm In Dextrose/Water 1 50ml.bag @ 12.5 mls/hr IVPB Q8HR STAR Rx#: [id number] Vancomycin 1,000 mg In 125 Sodium Chloride 0.9% 250 ml @ 125 mls/hr IVPB Q16H STAR Rx#:[id number] Output: Estimated Blood Loss 5 Other: Voiding Method Toilet # Voids 4 4 - Exam General: The patient is awake and alert, in no distress Eye: there is normal conjunctiva bilaterally. Neck: The neck is supple, there is no JVD. Cardiovascular: Normal S1-S2, no S3-S4, no murmurs. Respiratory: Lungs clear to auscultation bilaterally Gastrointestinal: Abdomen is soft, nontender Neurological:. Speech is normal. Skin: Skin is warm and dry - Labs CBC & Chem 7: 03/15/17 08:10 03/15/17 08:10 Labs: Abnormal Lab Results - Last 24 Hours (Table) 03/15/17 03/15/17 Range/Units 08:10 08:10 RBC 3.43 L (3.80-5.40) m/uL Hgb 10.5 L (11.4-16.0) gm/dL Hct 32.6 L (34.0-46.0) % Chloride 114 H (98-107) mmol/L Carbon Dioxide 18 L (22-30) mmol/L BUN 6 L (7-17) mg/dL Glucose 56 L (74-99) mg/dL AST 13 L (14-36) U/L Total Protein 4.8 L (6.3-8.2) g/dL Albumin 2.6 L (3.5-5.0) g/dL Microbiology - Last 24 Hours (Table) 03/14/17 18:30 Gram Stain - Preliminary Foot - Right Wound Culture - Preliminary 03/14/17 18:30 Gram Stain - Preliminary Foot - Right Wound Culture - Preliminary 03/14/17 18:30 Anaerobic Culture - Preliminary Foot - Right 03/14/17 18:30 Anaerobic Culture - Preliminary Foot - Right Assessment and Plan Plan: #1 right foot cellulitis and abscess with sepsis on presentation: Status post I& D by orthopedic. Currently on broad-spectrum antibiotic. Awaiting culture results to finalize. Infectious disease following. #2 tobacco abuse patient was counseled to quit during this admission #3 constipation on Colace GI prophylaxis Pepcid and DVT prophylaxis with subcu heparin Switch pain medication to oral.
[2017-03-15] MEDS ORDERED: VANCOMYCIN TROUGH DUE 1 EACH MISC MISCELLANE ONE (14:00)
--- NOTE | 2017-03-15 14:24 | P.PN ---
Subjective Principal diagnosis: Right foot infection, puncture wound, abscess This is a pleasant 41-year-old female who is admitted for right foot infection. Patient is status post incision and drainage of the right foot. This is postoperative day #1. Patient is seen and evaluated at bedside with Dr. Brad Becerril. Patient states her pain is under control. The patient has no new complaints today. Patient denies any numbness, weakness tingling, fever/ chills. Objective - Vital Signs Vital signs: Vital Signs Temp 98.5 F 03/15/17 07:50 Pulse 59 L 03/15/17 08:00 Resp 16 03/15/17 08:00 BP 133/67 03/15/17 07:50 Pulse Ox 100 03/15/17 07:50 Intake & Output 03/14/17 03/15/17 03/15/17 18:59 06:59 18:59 Intake Total 1500 1225 Output Total 5 Balance 1495 1225 Weight 58.967 kg 58.967 kg Intake: IV 1500 1050 Sodium Chloride 0.9% 1, 1000 1000 000 ml @ 125 mls/hr IV . Q8H STAR Rx#:[id number] Intake, IV Titration 175 Amount Piperacillin-Tazobactam 3 50 .375 gm In Dextrose/Water 1 50ml.bag @ 12.5 mls/hr IVPB Q8HR STAR Rx#: [id number] Vancomycin 1,000 mg In 125 Sodium Chloride 0.9% 250 ml @ 125 mls/hr IVPB Q16H STAR Rx#:[id number] Output: Estimated Blood Loss 5 Other: Voiding Method Toilet # Voids 4 4 - Exam On exam patient is alert and oriented 3 and is in no acute distress. Dressing over the right foot is intact. Patient is able to move the toes. Neurovascular status is intact. - Labs CBC & Chem 7: 03/15/17 08:10 03/15/17 08:10 Labs: Abnormal Lab Results - Last 24 Hours (Table) 03/15/17 03/15/17 Range/Units 08:10 08:10 RBC 3.43 L (3.80-5.40) m/uL Hgb 10.5 L (11.4-16.0) gm/dL Hct 32.6 L (34.0-46.0) % Chloride 114 H (98-107) mmol/L Carbon Dioxide 18 L (22-30) mmol/L BUN 6 L (7-17) mg/dL Glucose 56 L (74-99) mg/dL AST 13 L (14-36) U/L Total Protein 4.8 L (6.3-8.2) g/dL Albumin 2.6 L (3.5-5.0) g/dL Microbiology - Last 24 Hours (Table) 03/14/17 18:30 Gram Stain - Preliminary Foot - Right Wound Culture - Preliminary 03/14/17 18:30 Gram Stain - Preliminary Foot - Right Wound Culture - Preliminary 03/14/17 18:30 Anaerobic Culture - Preliminary Foot - Right 03/14/17 18:30 Anaerobic Culture - Preliminary Foot - Right Assessment and Plan (1) Foot infection Status: Acute (2) Puncture wound Status: Acute (3) Abscess of right foot Status: Acute Plan: #1. Continue IV antibiotics and pain control. #2. Surgical dressing to remain intact until tomorrow. #3. Continue to elevate the right lower extremity. #4. Appreciate input from infectious disease #5. Will continue to follow patient closely.
[2017-03-15] MEDS: HYDROcodone/APAP 5-325MG 1 EACH TAB PO PRN (19:49)
[2017-03-15] MEDS: HEPARIN SODIUM,PORCINE 5,000 UNIT/ML 1 ML VIAL SQ SCH (22:02)
[2017-03-16] MEDS: VANCOMYCIN 1,000 MG in SODIUM CHLORIDE 0.9% 250 ML IVPB SCH ×3 (04:29→19:52)
[2017-03-16] MEDS: KETOROLAC 30 MG/ML 1 ML VIAL IVP SCH ×3 (06:17→18:03)
[2017-03-16 07:49] LABS: Basophils % (A) 1 %; CH 30.6; CHCM 33.3; Eosinophils # (A) 0.1 k/uL (0-0.7); Eosinophils % (A) 2 %; HCT 33.7 % (34.0-46.0); HDW 2.69; HGB 11.3 gm/dL (11.4-16.0); Luc # (Auto) 0.12; Luc % (Auto) 2; Lymphocytes # (A) 1.6 k/uL (1.0-4.8); Lymphocytes % (A) 27 %; MCH 30.9 pg (25.0-35.0); MCHC 33.5 g/dL (31.0-37.0); MCV 92.3 fL (80.0-100.0); Mean Platelet Volume 7.3; Monocytes # (A) 0.3 k/uL (0-1.0); Monocytes % (A) 6 %; Neutrophils # (A) 3.8 k/uL (1.3-7.7); Neutrophils % (A) 63 %; RBC 3.65 m/uL (3.80-5.40); RDW 12.1 % (11.5-15.5); WBC (Perox) 6.07
[2017-03-16 07:57] LABS: ALT 27 U/L (9-52); AST 18 U/L (14-36); Alkaline Phosphatase 64 U/L (38-126); Anion Gap 5 mmol/L; Blood Urea Nitrogen 3 mg/dL (7-17); Calcium 8.7 mg/dL (8.4-10.2); Carbon Dioxide 23 mmol/L (22-30); Chloride 111 mmol/L (98-107); Glucose 71 mg/dL (74-99); Non-African American GFR(MDRD) >60 (>60 ml/min/1.73 sqM); Potassium 3.7 mmol/L (3.5-5.1); Sodium 139 mmol/L (137-145); Total Bilirubin 0.3 mg/dL (0.2-1.3); Total Protein 5.1 g/dL (6.3-8.2)
--- NOTE | 2017-03-16 08:51 | P.PN ---
Subjective Principal diagnosis: Right foot infection, puncture wound, abscess This is a pleasant 41-year-old female who is admitted for right foot infection. Patient is status post incision and drainage of the right foot. This is postoperative day #2. Patient is seen and evaluated at bedside with Dr. Brad Becerril. Patient states her pain is under control. The patient has no new complaints today. Patient denies any numbness, weakness tingling, fever/ chills. Objective - Vital Signs Vital signs: Vital Signs Temp 97.9 F 03/16/17 07:51 Pulse 72 03/16/17 07:51 Resp 16 03/16/17 07:51 BP 128/85 03/16/17 07:51 Pulse Ox 100 03/16/17 07:51 Intake & Output 03/15/17 03/16/17 03/16/17 18:59 06:59 18:59 Intake Total 1700 1840 Output Total 6 Balance 1694 1840 Weight 58.967 kg Intake: IV 400 Sodium Chloride 0.9% 1, 400 000 ml @ 125 mls/hr IV . Q8H STAR Rx#:[id number] Intake, IV Titration 1100 350 Amount Piperacillin-Tazobactam 3 50 100 .375 gm In Dextrose/Water 1 50ml.bag @ 12.5 mls/hr IVPB Q8HR STAR Rx#: [id number] Sodium Chloride 0.9% 1, 800 000 ml @ 125 mls/hr IV . Q8H STAR Rx#:[id number] Vancomycin 1,000 mg In 250 Sodium Chloride 0.9% 250 ml @ 125 mls/hr IVPB BID@ 0400,1500 STAR Rx#: [id number] Vancomycin 1,000 mg In 250 Sodium Chloride 0.9% 250 ml @ 125 mls/hr IVPB Q8H STAR Rx#:[id number] Oral 600 1090 Output: Stool 6 Other: Voiding Method Toilet # Voids 4 5 - Exam On exam patient is alert and oriented 3 and is in no acute distress. Dressing is taken down and packing is taken out revealing a healing open wound. There is no surrounding erythema. Patient has full foot and ankle motion. Neurovascular status is intact. - Labs CBC & Chem 7: 03/16/17 07:06 03/16/17 07:06 Labs: Abnormal Lab Results - Last 24 Hours (Table) 03/15/17 03/15/17 03/16/17 Range/Units 08:10 08:10 07:06 RBC 3.43 L 3.65 L (3.80-5.40) m/uL Hgb 10.5 L 11.3 L (11.4-16.0) gm/dL Hct 32.6 L 33.7 L (34.0-46.0) % Chloride 114 H (98-107) mmol/L Carbon Dioxide 18 L (22-30) mmol/L BUN 6 L (7-17) mg/dL Glucose 56 L (74-99) mg/dL AST 13 L (14-36) U/L Total Protein 4.8 L (6.3-8.2) g/dL Albumin 2.6 L (3.5-5.0) g/dL 03/16/17 Range/Units 07:06 RBC (3.80-5.40) m/uL Hgb (11.4-16.0) gm/dL Hct (34.0-46.0) % Chloride 111 H (98-107) mmol/L Carbon Dioxide (22-30) mmol/L BUN 3 L (7-17) mg/dL Glucose 71 L (74-99) mg/dL AST (14-36) U/L Total Protein 5.1 L (6.3-8.2) g/dL Albumin 2.8 L (3.5-5.0) g/dL Microbiology - Last 24 Hours (Table) 03/13/17 17:35 Gram Stain - Final Foot - Right Wound Culture - Final Assessment and Plan (1) Foot infection Status: Acute (2) Puncture wound Status: Acute (3) Abscess of right foot Status: Acute Plan: #1. Continue IV antibiotics and pain control. #2. Daily dressing changes. #3. Continue to elevate the right lower extremity. #4. Appreciate input from infectious disease. #5. Will continue to follow patient closely.
[2017-03-16] MEDS: HEPARIN SODIUM,PORCINE 5,000 UNIT/ML 1 ML VIAL SQ SCH ×2 (09:14→19:52)
[2017-03-16] MEDS: FAMOTIDINE 20 MG TAB PO SCH ×2 (09:14→19:52)
[2017-03-16] MEDS: DOCUSATE 100 MG CAP PO SCH ×2 (09:14→19:52)
[2017-03-16] MEDS: PIPERACILLIN-TAZOBACTAM 3.375 GM in DEXTROSE/WATER 1 50ML.BAG IVPB SCH ×3 (09:14→15:36)
--- NOTE | 2017-03-16 12:50 | P.PN ---
Subjective Patient is doing well today. Pain is well controlled. Objective - Vital Signs Vital signs: Vital Signs Temp 97.9 F 03/16/17 07:51 Pulse 72 03/16/17 07:51 Resp 16 03/16/17 07:51 BP 128/85 03/16/17 07:51 Pulse Ox 100 03/16/17 07:51 Intake & Output 03/15/17 03/16/17 03/16/17 18:59 06:59 18:59 Intake Total 1700 1840 100 Output Total 6 Balance 1694 1840 100 Weight 58.967 kg Intake: IV 400 Sodium Chloride 0.9% 1, 400 000 ml @ 125 mls/hr IV . Q8H STAR Rx#:[id number] Intake, IV Titration 1100 350 Amount Piperacillin-Tazobactam 3 50 100 .375 gm In Dextrose/Water 1 50ml.bag @ 12.5 mls/hr IVPB Q8HR STAR Rx#: [id number] Sodium Chloride 0.9% 1, 800 000 ml @ 125 mls/hr IV . Q8H STAR Rx#:[id number] Vancomycin 1,000 mg In 250 Sodium Chloride 0.9% 250 ml @ 125 mls/hr IVPB BID@ 0400,1500 STAR Rx#: [id number] Vancomycin 1,000 mg In 250 Sodium Chloride 0.9% 250 ml @ 125 mls/hr IVPB Q8H STAR Rx#:[id number] Oral 600 1090 100 Output: Stool 6 Other: Voiding Method Toilet # Voids 4 5 - Exam General: The patient is awake and alert, in no distress Eye: there is normal conjunctiva bilaterally. Neck: The neck is supple, there is no JVD. Cardiovascular: Normal S1-S2, no S3-S4, no murmurs. Respiratory: Lungs clear to auscultation bilaterally Gastrointestinal: Abdomen is soft, nontender Neurological:. Speech is normal. Skin: Skin is warm and dry - Labs CBC & Chem 7: 03/16/17 07:06 03/16/17 07:06 Labs: Abnormal Lab Results - Last 24 Hours (Table) 03/16/17 03/16/17 Range/Units 07:06 07:06 RBC 3.65 L (3.80-5.40) m/uL Hgb 11.3 L (11.4-16.0) gm/dL Hct 33.7 L (34.0-46.0) % Chloride 111 H (98-107) mmol/L BUN 3 L (7-17) mg/dL Glucose 71 L (74-99) mg/dL Total Protein 5.1 L (6.3-8.2) g/dL Albumin 2.8 L (3.5-5.0) g/dL Microbiology - Last 24 Hours (Table) 03/13/17 17:35 Gram Stain - Final Foot - Right Wound Culture - Final Assessment and Plan Plan: #1 right foot cellulitis and abscess with sepsis on presentation: Status post I& D by orthopedic. Currently on broad-spectrum antibiotic. Awaiting culture results to finalize. Infectious disease following. Awaiting final recommendation for oral antibiotic #2 tobacco abuse patient was counseled to quit during this admission #3 constipation on Colace GI prophylaxis Pepcid and DVT prophylaxis with subcu heparin Switch pain medication to oral. Anticipate discharge home within the next day or 2.
[2017-03-17] MEDS: PIPERACILLIN-TAZOBACTAM 3.375 GM in DEXTROSE/WATER 1 50ML.BAG IVPB SCH ×3 (00:07→17:27)
[2017-03-17] MEDS: KETOROLAC 30 MG/ML 1 ML VIAL IVP SCH ×3 (00:08→12:56)
[2017-03-17] MEDS: VANCOMYCIN 1,000 MG in SODIUM CHLORIDE 0.9% 250 ML IVPB SCH ×2 (04:12→12:52)
[2017-03-17 07:04] LABS: Basophils % (A) 1 %; CH 31.5; CHCM 33.7; Eosinophils # (A) 0.2 k/uL (0-0.7); Eosinophils % (A) 2 %; HCT 32.7 % (34.0-46.0); HDW 2.61; HGB 10.7 gm/dL (11.4-16.0); Luc # (Auto) 0.11; Luc % (Auto) 2; Lymphocytes # (A) 1.5 k/uL (1.0-4.8); Lymphocytes % (A) 22 %; MCH 30.8 pg (25.0-35.0); MCHC 32.7 g/dL (31.0-37.0); Mean Platelet Volume 7.9; Monocytes # (A) 0.4 k/uL (0-1.0); Monocytes % (A) 6 %; Neutrophils # (A) 4.6 k/uL (1.3-7.7); Neutrophils % (A) 67 %; RBC 3.47 m/uL (3.80-5.40); RDW 12.8 % (11.5-15.5); WBC 6.8 k/uL (3.8-10.6)
[2017-03-17 07:27] LABS: ALT 29 U/L (9-52); AST 15 U/L (14-36); Alkaline Phosphatase 57 U/L (38-126); Anion Gap 7 mmol/L; Blood Urea Nitrogen 3 mg/dL (7-17); Calcium 8.6 mg/dL (8.4-10.2); Carbon Dioxide 24 mmol/L (22-30); Chloride 110 mmol/L (98-107); Glucose 76 mg/dL (74-99); Non-African American GFR(MDRD) >60 (>60 ml/min/1.73 sqM); Potassium 3.5 mmol/L (3.5-5.1); Sodium 141 mmol/L (137-145); Total Bilirubin 0.3 mg/dL (0.2-1.3); Total Protein 4.8 g/dL (6.3-8.2)
[2017-03-17] MEDS: DOCUSATE 100 MG CAP PO SCH (08:38)
[2017-03-17] MEDS: HEPARIN SODIUM,PORCINE 5,000 UNIT/ML 1 ML VIAL SQ SCH (08:38)
[2017-03-17] MEDS: FAMOTIDINE 20 MG TAB PO SCH (08:38)
--- NOTE | 2017-03-17 08:42 | P.PN ---
Subjective Principal diagnosis: Right foot infection, puncture wound, abscess This is a pleasant 41-year-old female who is admitted for right foot infection. Patient is status post incision and drainage of the right foot. This is postoperative day #3. Patient states her pain is under control. Patient has no new complaints today. Patient denies any numbness, weakness tingling, fever/ chills. Objective - Vital Signs Vital signs: Vital Signs Temp 97.1 F L 03/17/17 02:09 Pulse 59 L 03/17/17 02:09 Resp 16 03/17/17 02:09 BP 136/75 03/17/17 02:09 Pulse Ox 99 03/17/17 02:09 Intake & Output 03/16/17 03/17/17 03/17/17 18:59 06:59 18:59 Intake Total 280 1780 120 Balance 280 1780 120 Intake: Intake, IV Titration 800 Amount Piperacillin-Tazobactam 3 50 .375 gm In Dextrose/Water 1 50ml.bag @ 12.5 mls/hr IVPB Q8HR STAR Rx#: [id number] Vancomycin 1,000 mg In 750 Sodium Chloride 0.9% 250 ml @ 125 mls/hr IVPB Q8H STAR Rx#:[id number] Oral 280 980 120 Other: Voiding Method Toilet # Voids 2 3 - Exam On exam patient is alert and oriented 3 and is in no acute distress. Dressing removed revealing a healing open wound that is draining. There was about a quarter-sized spot of purulent drainage on the dressing unchanged. There is no surrounding erythema. Patient has full foot and ankle motion. Neurovascular status is intact. - Labs CBC & Chem 7: 03/17/17 06:34 03/17/17 06:34 Labs: Abnormal Lab Results - Last 24 Hours (Table) 03/17/17 03/17/17 Range/Units 06:34 06:34 RBC 3.47 L (3.80-5.40) m/uL Hgb 10.7 L (11.4-16.0) gm/dL Hct 32.7 L (34.0-46.0) % Chloride 110 H (98-107) mmol/L BUN 3 L (7-17) mg/dL Total Protein 4.8 L (6.3-8.2) g/dL Albumin 2.6 L (3.5-5.0) g/dL Microbiology - Last 24 Hours (Table) 03/14/17 18:30 Gram Stain - Final Foot - Right Wound Culture - Final 03/14/17 18:30 Gram Stain - Final Foot - Right Wound Culture - Final Assessment and Plan (1) Foot infection Status: Acute (2) Puncture wound Status: Acute (3) Abscess of right foot Status: Acute Plan: #1. Continue IV antibiotics and pain control. #2. Daily dressing changes. #3. Continue to elevate the right lower extremity. #4. Weightbearing as tolerated #5. Appreciate input from infectious disease. #6. Will continue to follow patient closely.
[2017-03-17] MEDS ORDERED: VANCOMYCIN TROUGH DUE 1 EACH MISC MISCELLANE ONE (11:00)
[2017-03-17 15:09] VITALS: TEMP 98.2
--- NOTE | 2017-03-17 15:42 | P.DS ---
Providers Date of admission: 03/13/17 04:12 Expected date of discharge: 03/17/17 Attending physician: Simon Cisneros Consults: 03/13/17 09:54 Consult Physician Routine Consulting Provider: Kevin Porras Consult Reason/Comments: foot abcess Do you want consulting provider notified?: Yes 03/13/17 11:24 Consult Physician Routine Consulting Provider: Brad Becerril Consult Reason/Comments: foot infection Do you want consulting provider notified?: Yes Primary care physician: Gladis Bertrand Hospital Course: Discharge diagnosis #1 right foot cellulitis and abscess with sepsis on presentation: Status post I& D by orthopedic. Patient will continue Augmentin for 10 more days per infectious disease #2 tobacco abuse patient was counseled to quit during this admission #3 constipation on Colace Hospital course This patient is a 41-year-old woman presenting with complaint of right foot pain and swelling. This was all brought on after she stepped on a toothpick on Tuesday. She sustained a puncture to the plantar aspect of the right foot below the third MCP joint. She states that she had increasing pain and swelling. She was seen at the clinic yesterday and she was started on Bactrim. She has been taking ibuprofen for pain. She states that despite these measures she has had increasing pain and swelling. She has not noticed fever, chest pain, shortness of breath, palpitations or any other systemic symptoms. In the emergency room patient was seen and evaluated, she had incision and drainage of her foot pulse collection by emergency room physician she was started on IV Zosyn and IV vancomycin and was admitted to medical floor. Surgical consultation was requested in the emergency room. Orthopedics were consulted. Patient underwent incision and drainage in the OR. Wound culture is negative. Anaerobic culture is still pending. Patient was followed by infectious disease and orthopedics. Patient has been cleared for discharge by consulting physicians. Infectious diseases recommending Augmentin for 10 more days. Patient will be given a prescription for [place]. And she'll follow up with infectious disease and her PCP in 1 week. Patient is medically stable for discharge. Please refer to chart for any further details I performed an examination of the patient and discussed their management with the physician Visual Education Director. I have reviewed the Physician Visual Education Director's notes and agree with the documented findings and plan of care Patient Condition at Discharge: Stable Plan - Discharge Summary New Discharge Prescriptions: New Amoxicillin/Potassium Clav [Augmentin 325125 Tablet] 1 each PO Q12HR #20 tab HYDROcodone/APAP 5-325MG [[place] 5-325] 1 each PO Q6HR PRN #40 tab PRN Reason: Pain Scale 1 To 5 Continue Pseudoephedrine HCl [Sudafed] 30 mg PO Q4HR PRN PRN Reason: Allergy Symptoms Discharge Medication List Pseudoephedrine HCl [Sudafed] 30 mg PO Q4HR PRN 03/13/17 [History] Amoxicillin/Potassium Clav [Augmentin 875-125 Tablet] 1 each PO Q12HR #20 tab [Rx] HYDROcodone/APAP 5-325MG [[place] 5-325] 1 each PO Q6HR PRN #40 tab 03/17/17 [Rx] Follow up Appointment(s)/Referral(s): Brad Becerril DO [Doctor of Osteopathic Medicine] - 2 Weeks Gladis Bertrand DO [Primary Care Provider] - 1 Week Ambulatory/Diagnostic Orders: Crutches [DME.AMB1] Time Frame: 6 Weeks, Location: Determined By Patient Activity/Diet/Wound Care/Special Instructions: Weightbearing as tolerated with crutches or walker. Diet: regular Discharge Disposition: HOME SELF-CARE
[2017-03-17 15:49] VITALS: BP 125/76; PULSE 60
== END 2017-03-17 18:23 | disposition home or self-care (01) | DRG 872 ==
LOC: EC 20:55 → 3SUR 03-13 04:12
PROVIDERS: ADMIT Internal Medicine; ATTEND Internal Medicine
PROC: 0H9MXZZ Drainage of Right Foot Skin, External Approach (ICD-10-PCS; principal; 2017-03-14 07:30)
DX: A41.9 Sepsis, unspecified organism (principal); L03.115 Cellulitis of right lower limb; L02.611 Cutaneous abscess of right foot; S91.331A Puncture wound without foreign body, right foot, initial encounter; F17.200 Nicotine dependence, unspecified, uncomplicated; K59.00 Constipation, unspecified; M79.7 Fibromyalgia; F32.9 Major depressive disorder, single episode, unspecified; Z88.8 Allergy status to other drugs, medicaments and biological substances; Z82.49 Family history of ischemic heart disease and other diseases of the circulatory system; W45.8XXA Other foreign body or object entering through skin, initial encounter
CPT/HCPCS: 10060; 36415; 80048; 80053; 80202; 81025; 83605; 85025; 85652; 87070; 87075; 87205; 96365; 96366; 96375; 96376; 99284

== ENCOUNTER → 2017-07-15 | Outpatient (CLI) | payer OTHER ==
--- NOTE | 2017-07-18 09:09 | MM ---
Reason for exam: screening (asymptomatic). History: Family history of breast cancer in 2 grandmothers and breast cancer in paternal aunt. Physical Findings: A clinical breast exam by your physician is recommended on an annual basis and results should be correlated with mammographic findings. MG Screening Mammo w CAD Bilateral CC and MLO view(s) were taken. No prior studies available for comparison. There is no discrete abnormality. ASSESSMENT: Negative, BI-RAD 1 RECOMMENDATION: Routine screening mammogram of both breasts in 1 year.
== END | disposition home or self-care (01) ==
LOC: RADMAMWWP 08:49
PROVIDERS: ATTEND Family Medicine
DX: Z12.31 Encounter for screening mammogram for malignant neoplasm of breast (principal)

== ENCOUNTER → 2019-09-20 | Outpatient (CLI) | payer OTHER ==
[2019-09-20 14:22] VITALS: BP 141/87; PULSE 108; RESP 16
--- NOTE | 2019-09-24 09:35 | P.PAINCN ---
History of Present Illness - Reason for Consult Consult date: 09/20/19 - History of Present Illness This is a 44-year-old patient referred by Dr. Cameron with a history of fibromyalgia, presenting with a chief complaint of chronic pain in bilateral lumbar region with radiation to bilateral lower extremities, right side worse than left. Pain started approximately 2 years ago when she had a coughing fit and fell. She may have lost consciousness at that time. Pain initially started in the right low back, radiating to entire right leg and has recently progressed to left low back and left lower extremity as well. Pain in the lower extremities is nondermatomal in nature. Patient states that leg pain is the same intensity as back pain. Pain rated as 8-9/10. She denies numbness and tingling in lower extremities, she does endorse subjective weakness in bilateral lower extremities, nondermatomal. She has been taking [id number] Tylenol for pain control, with modest benefit. She last went to physical therapy approximately 1.5 years ago, with no significant benefit, patient believes that it made the pain worse. She has not had lumbar surgery, she has not undergone interventional pain management in the past. Patient also denies new-onset weakness, bowel/bladder incontinence, or any other signs or symptoms of cauda equina syndrome. There are no signs of acute intoxication, and no indications of medication diversion or overuse. In addition to above, 13-point review of systems is also negative for chest pain, shortness of breath, changes in vision, changes in hearing, new onset weakness, abdominal pain, diarrhea, extreme fatigue, malaise, fever, skin changes, homicidal or suicidal ideation, or bowel or bladder incontinence. She does endorse occasional chills and coughing spells. Physical exam: Vital Signs: Reviewed in EMR GENERAL: Well appearing, in no acute distress PSYCH: Mood and affect is appropriate. Awake, alert, and oriented SKIN: Skin color, texture, turgor normal, no rashes or lesions HEENT: Normocephalic, atraumatic. EOM intact CV: No pedal edema RESP: Respirations are unlabored, no audible wheezing GI: Abdomen non-distended MUSCULOSKELETAL: Bilateral lower extremity strength is normal and symmetric. No atrophy or tone abnormalities are noted. Lumbar spine: Straight leg raising in the sitting position is positive bilaterally for radicular pain. Tenderness to palpation over the lumbar spine and paraspinous muscles bilaterally. Positive for pain with facet loading and back extension/rotation. Extremities: Peripheral joint ROM is full and pain free without obvious instability or laxity in all four extremities. No edema or skin discolorations noted. Gait: Gait is slow, antalgic NEUR: Bilateral lower extremity coordination and muscle stretch reflexes are physiologic and symmetric. Negative clonus. No loss of sensation is noted. Cranial nerves are grossly intact. Imaging: MRI lumbar spine done on 08/03/2019 shows disc desiccation at L3-4, 45 and L5- S1. Central annular tear and broad based disc bulge resulting in minimal bilateral neural foraminal stenosis at L4-5, no spinal canal stenosis. At L5-S1 disc herniation with extension along the bilateral lateral recesses resulting in mass effect on the S1 nerve roots. No significant spinal canal stenosis. Assessment: 1. Lumbar degenerative disc disease 2. Lumbar radicular pain 3. Lumbar spondylosis 4. Fibromyalgia 5. Chronic nicotine use Plan: 1. Explanation: Diagnoses, prognoses, and multiple treatment options including but not limited to physical therapy, interventional therapies, medication management and surgery were discussed with the patient and all questions were answered to the patient's satisfaction. 2. Investigations: MRI lumbar spine reviewed 3. Counseling: The patient was counseled for 3 minutes on SMOKING CESSATION. Specifically, the patient was instructed regarding the importance of smoking cessation in the context of both chronic pain and overall health. 4. Procedures: We will schedule bilateral L5-S1 transforaminal epidural steroid injections. Patient is not on any anticoagulants. 5. Consultations: None, in the future she would likely benefit from physical therapy referral 6. Medications: No changes 7. Disposition: For above-mentioned procedure Past Medical History Past Medical History: Fibromyalgia Additional Past Medical History / Comment(s): TMJ, hyper mobile joint disorder, sciatica, History of Any Multi-Drug Resistant Organisms: None Reported Past Surgical History: Section, Orthopedic Surgery Additional Past Surgical History / Comment(s): right knee sx, joint disorder, Past Anesthesia/Blood Transfusion Reactions: No Reported Reaction Past Psychological History: Depression Smoking Status: Current every day smoker Past Alcohol Use History: Rare Past Drug Use History: None Reported - Past Family History Father Family Medical History: Asthma, Cancer Additional Family Medical History / Comment(s): two types of cancer Mother Family Medical History: Myocardial Infarction ([place]) Additional Family Medical History / Comment(s): from heart attack Medications and Allergies Home Medications Medication Instructions Recorded Confirmed Type Acetaminophen Tab [Tylenol] 1 tab PO QID 09/20/19 09/20/19 History Aspirin 1 tab PO QID 09/20/19 09/20/19 History Allergies Allergy/AdvReac Type Severity Reaction Status Date / Time prochlorperazine Allergy Unknown Verified 09/20/19 14:04 [From Compazine] prochlorperazine edisylate Allergy Unknown Verified 09/20/19 14:04 [From Compazine] prochlorperazine maleate Allergy Unknown Verified 09/20/19 14:04 [From Compazine] PQRS Measure Charge Sheet Measure #130: Documentation of Current Meds in Medical Chart: Patient's medications documented in chart Measure #226: Tobacco Use: Screen & Cessation Intervention: Pt screened for tobacco use AND intervention given Measure #111: Pneumonia Vaccination: Pneumococcal vaccine NOT administered or previously given Measure #47: Advance Care Plan: Advance care planning discussed & documented, pt chose/unable to give Measure #412: Opioid Treatment Agreement: No documentation of signed opioid treatment agreement Measure #408: Opioid Therapy Follow-up Evaluation: Patient had NO f/u eval minimum every 3 months during opioid therapy Measure #317: Preventitive Care & Scrn High Bld Press & F/U: Pre-hypertensive or hypertensive BP documented, pt will f/u with PCP Measure #128: Body Mass Index (BMI) Screening & Follow-up: BMI documented within normal parameters Measure #131: Pain Assessment & Follow-up: Pain positive & plan documented, Follow-up scheduled Measure #431: Unhealthy Alcohol Use Preventative Care & Scrn: Patient not identified as an unhealthy alcohol user PQRS Narrative: Smoking Status Current every day smoker Home Medications: Ambulatory Orders Acetaminophen Tab [Tylenol] 1 tab PO QID 09/20/19 Aspirin 1 tab PO QID 09/20/19
== END | disposition home or self-care (01) ==
LOC: PNWHC3 13:10
PROVIDERS: ATTEND Anesthesiology
DX: M51.16 Intervertebral disc disorders with radiculopathy, lumbar region (principal); M47.26 Other spondylosis with radiculopathy, lumbar region; M79.7 Fibromyalgia; F17.200 Nicotine dependence, unspecified, uncomplicated; Z88.8 Allergy status to other drugs, medicaments and biological substances; Z79.899 Other long term (current) drug therapy; Z79.82 Long term (current) use of aspirin
CPT/HCPCS: 99211

== ENCOUNTER 2019-10-02 09:26 | Day surgery (SDC) | payer OTHER ==
[2019-10-02 09:42] VITALS: RESP 16; TEMP 97.6
[2019-10-02] MEDS ORDERED: LIDOCAINE 1% (10MG/ML) FOR IV START INTRADERMA ONE (09:47)
[2019-10-02] MEDS ORDERED: LACTATED RINGERS 1,000 ML IV ONE (09:47)
--- NOTE | 2019-10-02 10:09 | P.GSHP ---
History of Present Illness H&P Date: 10/02/19 This is 44 years old female with a chronic history of severe low back pain, diagnosed with lumbar radiculopathy, lumbar degenerative disc disease and lumbar spondylosis with lumbar facet arthropathy she is here to have transforaminal epidural steroid injection at L5-S1 Past Medical History Past Medical History: Fibromyalgia Additional Past Medical History / Comment(s): TMJ, hyper mobile joint disorder, sciatica, History of Any Multi-Drug Resistant Organisms: None Reported Past Surgical History: Section, Orthopedic Surgery Additional Past Surgical History / Comment(s): right knee sx, joint disorder, Past Anesthesia/Blood Transfusion Reactions: No Reported Reaction Past Psychological History: Depression Smoking Status: Current every day smoker Past Alcohol Use History: Rare Past Drug Use History: None Reported - Past Family History Father Family Medical History: Asthma, Cancer Additional Family Medical History / Comment(s): two types of cancer Mother Family Medical History: Myocardial Infarction (PR) Additional Family Medical History / Comment(s): from heart attack Medications and Allergies Home Medications Medication Instructions Recorded Confirmed Type Acetaminophen Tab [Tylenol] 1 tab PO QID 09/20/19 10/02/19 History Aspirin 1 tab PO QID 09/20/19 10/02/19 History Allergies Allergy/AdvReac Type Severity Reaction Status Date / Time prochlorperazine Allergy Unknown Verified 09/20/19 14:04 [From Compazine] prochlorperazine edisylate Allergy Unknown Verified 09/20/19 14:04 [From Compazine] prochlorperazine maleate Allergy Unknown Verified 09/20/19 14:04 [From Compazine] Surgical - Exam Vital Signs Temp Pulse Resp BP Pulse Ox 97.6 F 98 16 164/83 99 10/02/19 09:41 10/02/19 09:41 10/02/19 09:41 10/02/19 09:41 10/02/19 09:41 Vital Signs: Reviewed in EMR GENERAL: Well appearing, in no acute distress PSYCH: Mood and affect is appropriate. Awake, alert, and oriented SKIN: Skin color, texture, turgor normal, no rashes or lesions HEENT: Normocephalic, atraumatic. EOM intact CV: No pedal edema RESP: Respirations are unlabored, no audible wheezing GI: Abdomen non-distended MUSCULOSKELETAL: Bilateral lower extremity strength is normal and symmetric. No atrophy or tone abnormalities are noted. Lumbar spine: Straight leg raising in the sitting position is positive bilaterally for radicular pain. Tenderness to palpation over the lumbar spine and paraspinous muscles bilaterally. Positive for pain with facet loading and back extension/rotation. Extremities: Peripheral joint ROM is full and pain free without obvious instability or laxity in all four extremities. No edema or skin discolorations noted. Gait: Gait is slow, antalgic NEUR: Bilateral lower extremity coordination and muscle stretch reflexes are physiologic and symmetric. Negative clonus. No loss of sensation is noted. Cranial nerves are grossly intact Results - Labs Comments: MRI lumbar spine done on 08/03/2019 shows disc desiccation at L3-4, 45 and L5- S1. Central annular tear and broad based disc bulge resulting in minimal bilateral neural foraminal stenosis at L4-5, no spinal canal stenosis. At L5-S1 disc herniation with extension along the bilateral lateral recesses resulting in mass effect on the S1 nerve roots. No significant spinal canal stenosis. Assessment and Plan Plan: Assessment and plan 1. Lumbar degenerative disc disease 2. Lumbar radicular pain 3. Lumbar spondylosis 4. Fibromyalgia 5. Chronic nicotine use . Patient could benefit from transforaminal epidural steroid injection at L5-S1 bilaterally Time with Patient: Less than 30
[2019-10-02] MEDS ORDERED: MIDAZOLAM 2 MG/2 ML VIAL ONE (10:10)
[2019-10-02] MEDS ORDERED: IOPAMIDOL M200 10 ML VIAL ONE (10:10)
[2019-10-02] MEDS ORDERED: methylPREDNISolone ACETATE 80 MG/ML 1 ML VIAL ONE (10:10)
[2019-10-02] MEDS ORDERED: fentaNYL (PF) 50 MCG/ML 2 ML AMP ONE (10:10)
--- NOTE | 2019-10-02 10:28 | P.PCN ---
Date of Procedure: 10/02/19 Procedure(s) Performed: PREOPERATIVE DIAGNOSIS: Lumbar radiculopathy. Lumbar degenerative disc disease. Lumbar spondylosis with lumbar facet arthropathy. POSTOPERATIVE DIAGNOSIS: Same as preop diagnosis. PROCEDURE 1. Transforaminal epidural steroid injection under fluoroscopic guidance at L5- S1 levels bilaterally. (Fluoroscopy images stored on file in the radiology Department ) 2. Lumbar epidurogram : ANESTHESIA: Local with 1% lidocaine 3 ml , moderate sedation with intravenous Versed 2 mg and fentanyle 50 micrograms EBL: Minimal PROCEDURE INDICATION: The patient with low back pain and radiculopathy symptoms unresponsive to conservative treatment. PROCEDURE DESCRIPTION / TECHNIQUE: The patient was seen and identified in the preoperative area. Risks, benefits, complications, and alternatives were discussed with the patient. The patient agreed to proceed with the procedure and signed the consent. IV was started, and vital signs were stable. Patient was taken to the OR and time out was completed. The patient was placed in the prone position on procedure table and a pillow was placed under the abdomen to reduce lumbar lordosis. The lumbosacral area was prepped and draped in the usual sterile fashion. Critical pause was taken. Vital signs were closely monitored during the procedure. Conscious sedation was used during the procedure to decrease patient s anxiety. Using oblique fluoroscopy, the chin of the `Maniy dog at right L5-S1 level was identified, and the skin and deeper tissues just below was localized with 1% lidocaine. Subsequently, a 22-gauge 3.5-inch spinal needle was advanced under a tunneled view fluoroscopic guidance just underneath the chin of the `Maniy dog at the right/left L-(or S1). Under lateral fluoroscopy, the needle was then advanced to the posterior border of the L5-S1 interforaminal space. After negative aspiration of CSF and blood and with no paresthesias, 1 mL Isovue 200 contrast dye was injected excellent epidurogram and outlining of the nerve root Subsequently, 3 mL of block solution containing 40 mg of Depo-Medrol and 2 mL of preservative-free normal saline was injected. Needle was removed and the same procedure was repeated at the left side L5-S1 level (s). At the end of the procedure, skin was cleansed, and bandages were applied. COMPLICATIONS:none DISPOSITION / PLANS: The patient was placed in a supine position and transferred to the recovery area in a stable condition for observation. There was no evidence of lower extremity motor or sensory deficit after the procedure. Patient was discharged from the recovery room after meeting discharge criteria. Home discharge instructions were given to the patient by the staff. The patient was reexamined prior to discharge.
[2019-10-02] MEDS ORDERED: IV FLUID CONTINUATION 750 ML IV ONE (10:38)
--- NOTE | 2019-10-02 10:44 | FL ---
EXAMINATION TYPE: FL guided pain mgmt statistic DATE OF EXAM: 10/02/2019 CLINICAL HISTORY: Low back pain. TECHNIQUE: Fluoroscopy. COMPARISON: None. FINDINGS: Fluoroscopic guidance was provided during pain relief procedure performed by Dr. Degroot . A total of 8 seconds of fluoroscopic time was utilized during the procedure and two spot images ar e acquired. Images acquired shows needle localization of the lumbosacral junction. IMPRESSION: As Above.
[2019-10-02 10:48] VITALS: BP 132/91; PULSE 82
== END 2019-10-02 11:10 | disposition home or self-care (01) ==
LOC: ORPAIN 09:26
PROVIDERS: ATTEND Anesthesiology
DX: M51.16 Intervertebral disc disorders with radiculopathy, lumbar region (principal); M47.26 Other spondylosis with radiculopathy, lumbar region; M79.7 Fibromyalgia; M26.609 Unspecified temporomandibular joint disorder, unspecified side; M35.7 Hypermobility syndrome; F32.9 Major depressive disorder, single episode, unspecified; F17.200 Nicotine dependence, unspecified, uncomplicated; Z87.39 Personal history of other diseases of the musculoskeletal system and connective tissue; Z98.890 Other specified postprocedural states; Z79.899 Other long term (current) drug therapy; Z79.82 Long term (current) use of aspirin; Z88.8 Allergy status to other drugs, medicaments and biological substances; Z82.5 Family history of asthma and other chronic lower respiratory diseases; Z80.9 Family history of malignant neoplasm, unspecified; Z82.49 Family history of ischemic heart disease and other diseases of the circulatory system
CPT/HCPCS: 81025; 64483; J2250; J1040; J3010; Q9966; 99152

== ENCOUNTER → 2019-12-25 | Outpatient (CLI) | payer OTHER | END | disposition home or self-care (01) | LOC: LABWHC1 10:05 | PROVIDERS: ATTEND Internal Medicine | DX: Z11.59 Encounter for screening for other viral diseases (principal) | CPT/HCPCS: 87635 ==

== ENCOUNTER 2019-12-27 10:32 | Day surgery (SDC) | payer OTHER ==
[2019-12-27] MEDS ORDERED: LIDOCAINE 1% (10MG/ML) FOR IV START INTRADERMA ONE (11:00)
[2019-12-27 11:03] VITALS: TEMP 97.9
[2019-12-27] MEDS ORDERED: LACTATED RINGERS 1,000 ML IV ONE (11:05)
[2019-12-27] MEDS ORDERED: MIDAZOLAM 2 MG/2 ML VIAL ONE (11:33)
[2019-12-27] MEDS ORDERED: fentaNYL (PF) 50 MCG/ML 2 ML AMP ONE (11:33)
[2019-12-27] MEDS ORDERED: IOPAMIDOL M200 10 ML VIAL ONE (11:33)
[2019-12-27] MEDS ORDERED: DEXAMETHASONE SOD PHOSPHATE 10 MG/ML 1 ML VIAL ONE (11:33)
[2019-12-27] MEDS ORDERED: IV FLUID CONTINUATION 400 ML IV ONE (11:57)
[2019-12-27] MEDS ORDERED: LACTATED RINGERS 1,000 ML IV SCH (12:07)
[2019-12-27 12:14] VITALS: BP 122/71; PULSE 69; RESP 18
--- NOTE | 2019-12-27 12:18 | FL ---
EXAMINATION TYPE: FL guided pain mgmt statistic DATE OF EXAM: 12/27/2019 CLINICAL HISTORY: Low back pain. TECHNIQUE: Fluoroscopy. COMPARISON: None. FINDINGS: Fluoroscopic guidance was provided during pain relief procedure performed by Dr. Daniels. A t otal of 18 seconds of fluoroscopic time was utilized during the procedure and 14 spot images are acqu ired. Images acquired shows needle localization at multiple levels of the lumbar spine. IMPRESSION: As Above.
--- NOTE | 2019-12-27 12:42 | P.PCN ---
Date of Procedure: 12/27/19 Procedure(s) Performed: PREOPERATIVE DIAGNOSIS: Lumbar radiculopathy POSTOPERATIVE DIAGNOSIS: Lumbar radiculopathy Attending physician: Ran Daniels M.D. PROCEDURE 1. Transforaminal epidural steroid injection under fluoroscopic guidance at L5- S1 level, bilateral side 2. Lumbar epidurogram ANESTHESIA: Local with 1% lidocaine 3 ml ; IV sedation with Versed and fentanyl , sedation time 17 minutes PROCEDURE INDICATION: The patient with low back pain and radiculopathy symptoms unresponsive to conservative treatment. Fluoroscopy was used for the procedure and fluoroscopic images were saved to the radiology portion of patient's chart. PROCEDURE DESCRIPTION / TECHNIQUE: The patient was seen and identified in the preoperative area. Risks, benefits, complications, and alternatives were discussed with the patient. The patient agreed to proceed with the procedure and signed the consent. IV was started, and vital signs were stable. Patient was taken to the OR and time out was completed. The patient was placed in the prone position on procedure table and a pillow was placed under the abdom en to reduce lumbar lordosis. The lumbosacral area was prepped and draped in the usual sterile fashion. Vital signs were closely monitored during the procedure. Conscious sedation was used. Using oblique fluoroscopy, the chin of the ``Joe dog and the skin and deeper tissues just below was localized with 1% lidocaine. Subsequently, a 22- gauge 3.5-inch spinal needle was advanced under a tunneled view fluoroscopic guidance just underneath the chin of the ``Jeo dog the bilateral L5 vertebrae . Under lateral fluoroscopy, the needle was then advanced to the posterior border of the foramen. After negative aspiration of CSF and blood and with no paresthesias, 1 mL of Isovue-200 contrast dye was injected under live fluoroscopy and there was no evidence of intravascular injection. The injectate solution consisting of 7.5 mg of dexamethasone with 1 mL of 1% lidocaine was then delivered on each side. A total of 15 mg of dexamethasone was used. The needle was withdrawn intact. At the end of the procedure, skin was cleansed, and bandages were applied. COMPLICATIONS: None COMMENTS: None DISPOSITION / PLANS: The patient was placed in a supine position and transferred to the recovery area in a stable condition for observation. There was no evidence of lower extremity motor or sensory deficit after the procedure. Patient was discharged from the recovery room after meeting discharge criteria. Home discharge instructions were given to the patient by the staff. The patient will follow up in clinic in 2-4 weeks.
== END 2019-12-27 12:32 | disposition home or self-care (01) ==
LOC: ORPAIN 10:32
PROVIDERS: ATTEND Anesthesiology
DX: M54.16 Radiculopathy, lumbar region (principal); Z88.8 Allergy status to other drugs, medicaments and biological substances
CPT/HCPCS: 81025; 64483; J2250; J1100; J3010; Q9966; 99152

== ENCOUNTER → 2020-01-23 | Outpatient (CLI) | payer OTHER ==
[2020-01-23 09:22] VITALS: BP 163/98; PULSE 87; RESP 16
--- NOTE | 2020-01-23 09:49 | P.PAINPG ---
Subjective Progress Note Date: 01/23/20 This is a follow-up visit for 44 years old female with a chronic history of severe low back pain with radiation to the lower extremity bilaterally she is diagnosed with lumbar spinal stenosis lumbar disc herniation at L5-S1, lumbar radiculopathy, lumbar spondylosis with lumbar facet arthropathy, we have done a transforaminal epidural steroid injection at the L5-S1 first injection was done in September 2019 and the second one 12/27/2019, she reported that she has significant improvement of her radicular symptoms on the right side but she continued to have severe low back pain with radiation to the lower extremity bilaterally but is more prominent on the left side, the pain is severe in intensity and interferes with the quality of life, she denies any motor or sensory deficit she denies any fever or night sweats and there is no change in the bowel movement or urination Objective - Vital Signs Vital signs: Vital Signs Temp Pulse 87 01/23/20 09:18 Resp 16 01/23/20 09:18 BP 163/98 01/23/20 09:18 Pulse Ox 100 01/23/20 09:18 Intake & Output 01/22/20 01/23/20 01/23/20 18:59 06:59 18:59 Weight 58.967 kg - Exam Physical Examinations : -Constitutiona : Cooperative , not in acute distress . -HEENT : nech : supple , no Lymphadenopathy , normal thyroid size . : eyes : no ptosis , no icterus, no photophobia . - neurologic : Cranial nerve II to XII intact , no focal neurological deffecit . -psychatric : alert , oriented X 3 , appropriate affect , intact judgment and insight . -Lymphatic : no Lymphadenopathy . - musculoskeltal : Lumber spine moter stegnth lower extremities ,thigh and legs 5/5 Right side , 4/5 Left side deep tendon reflexes : normal Knee Jerk , normal ankle Jerk lumber facet Loading Test =positive Right , positive Left Range of motion of the lumbar spine Flexion 30 degrees, extension 10 degrees strait leg raising test = positive at 30 degree on the left side and is positive at 45 on the right side Fabere test= positive Right , and positive LT . Multiple trigger point identified in the lumbar paravertebral muscles Assessment and Plan Plan: Assessment and plan=1-lumbar radiculopathy. 2-lumbar disc herniation at the L5-S1. 3-lumbar spinal stenosis. 4-lumbar spondylosis. 5-myofascial pain syndrome and lumbar paravertebral muscles. Patient could benefit from repeat transforaminal epidural steroid injection at L5-S1 bilaterally, Patient could benefit from trigger point injections lumbar paravertebral muscles. Patient could benefit from muscle relaxant Zanaflex 4 mg twice a day Time with Patient: Less than 30 PQRS Measure Charge Sheet Measure #130: Documentation of Current Meds in Medical Chart: Patient's medications documented in chart Measure #226: Tobacco Use: Screen & Cessation Intervention: Pt screened for tobacco use AND intervention given Measure #111: Pneumonia Vaccination: Pneumococcal vaccine NOT administered or previously given Measure #47: Advance Care Plan: Advance care planning discussed & documented, pt chose/unable to give Measure #412: Opioid Treatment Agreement: No documentation of signed opioid treatment agreement Measure #408: Opioid Therapy Follow-up Evaluation: Patient had NO f/u eval minimum every 3 months during opioid therapy Measure #317: Preventitive Care & Scrn High Bld Press & F/U: Pre-hypertensive or hypertensive BP documented, pt will f/u with PCP Measure #128: Body Mass Index (BMI) Screening & Follow-up: BMI documented within normal parameters Measure #131: Pain Assessment & Follow-up: Pain positive & plan documented, Follow-up scheduled Measure #431: Unhealthy Alcohol Use Preventative Care & Scrn: Patient not identified as an unhealthy alcohol user PQRS Narrative: Smoking Status Current every day smoker Blood Pressure 163/98 Pain Intensity [Lower Back] 8 Scale Used Numeric (1 - 10) Hx Alcohol Use (MH) No Home Medications: Ambulatory Orders Aspirin/Acetaminophen/Caffeine [Good[employer]'s Ex-Str Powder Packet] 1 each PO Q4HR PRN 01/22/20 buPROPion SR [Wellbutrin Sr] 150 mg PO BID 01/22/20 Controlled Substance Measures - Controlled Substance Measures Is patient prescribed a controlled substance at discharge?: No
== END | disposition home or self-care (01) ==
LOC: PNWHC3 08:57
PROVIDERS: ATTEND Specialist
DX: M79.18 Myalgia, other site (principal); M48.061 Spinal stenosis, lumbar region without neurogenic claudication; M47.26 Other spondylosis with radiculopathy, lumbar region; M51.17 Intervertebral disc disorders with radiculopathy, lumbosacral region; F17.200 Nicotine dependence, unspecified, uncomplicated; Z79.82 Long term (current) use of aspirin; Z79.899 Other long term (current) drug therapy
CPT/HCPCS: 99211

== ENCOUNTER → 2020-01-24 | Outpatient (CLI) | payer OTHER ==
--- NOTE | 2020-01-25 11:20 | MM ---
Reason for exam: screening (asymptomatic). Last mammogram was performed 2 years and 6 months ago. History: Family history of breast cancer in 2 grandmothers and breast cancer in paternal aunt. Physical Findings: A clinical breast exam by your physician is recommended on an annual basis and results should be correlated with mammographic findings. MG Screening Mammo w CAD Bilateral CC and MLO view(s) were taken. Prior study comparison: July 15, 2017, bilateral MG screening mammo w CAD. The breast tissue is extremely dense which could obscure a lesion on mammography. No significant changes when compared with prior studies. ASSESSMENT: Negative, BI-RAD 1 RECOMMENDATION: Routine screening mammogram of both breasts in 1 year.
== END | disposition home or self-care (01) ==
LOC: RADMAMWWP 13:57
PROVIDERS: ATTEND Family Medicine
DX: Z12.39 Encounter for other screening for malignant neoplasm of breast (principal)
CPT/HCPCS: 77067

== ENCOUNTER 2020-02-07 10:43 | Day surgery (SDC) | payer OTHER ==
[2020-02-05 10:49] VITALS: BMI 23.8
[~2020-02-07 10:43] MED LIST: LACTATED RINGERS 1,000 ML IV SCH
[2020-02-07] MEDS ORDERED: ROPIVACAINE 5MG/ML 20ML VIAL ONE (11:10)
[2020-02-07] MEDS ORDERED: methylPREDNISolone ACETATE 40 MG/ML 1 ML VIAL ONE (11:10)
[2020-02-07] MEDS ORDERED: IOPAMIDOL M200 10 ML VIAL ONE (11:10)
[2020-02-07] MEDS ORDERED: fentaNYL (PF) 50 MCG/ML 2 ML AMP ONE (11:10)
[2020-02-07] MEDS ORDERED: LIDOCAINE 1% (10MG/ML) FOR IV START INTRADERMA ONE (11:10)
[2020-02-07] MEDS ORDERED: MIDAZOLAM 2 MG/2 ML VIAL ONE (11:10)
--- NOTE | 2020-02-07 11:34 | P.PCN ---
Date of Procedure: 02/07/20 Procedure(s) Performed: PREOPERATIVE DIAGNOSIS:1- Lumbar radiculopathy .2-lumbar herniated disc disease. 3-myofascial pain syndrome lumbar area. 4-lumbar spondylosis POSTOPERATIVE DIAGNOSIS: Same as preoperative diagnoses. PROCEDURE 1. Transforaminal epidural steroid injection under fluoroscopic guidance at bilateral L5-S1 level. (Fluoroscopy images stored on file in the radiology Department ) 2. Lumbar epidurogram. 3-trigger point injections lumbar paraspinal muscles on the right third 2 on the left side.(Total of 4 trigger point injected ). ANESTHESIA: Local with 1% lidocaine 3 ml , moderate sedation with intravenous Versed 2 mg and fentanyle 100 micrograms EBL: Minimal PROCEDURE INDICATION: The patient with low back pain and radiculopathy symptoms unresponsive to conservative treatment. PROCEDURE DESCRIPTION / TECHNIQUE: The patient was seen and identified in the preoperative area. Risks, benefits, complications, and alternatives were discussed with the patient. The patient agreed to proceed with the procedure and signed the consent. IV was started, and vital signs were stable. Patient was taken to the OR and time out was completed. The patient was placed in the prone position on procedure table and a pillow was placed under the abdomen to reduce lumbar lordosis. The lumbosacral area was prepped and draped in the usual sterile fashion. Critical pause was taken. Vital signs were closely monitored during the procedure. Conscious sedation was used during the procedure to decrease patient s anxiety. Using oblique fluoroscopy, the chin of the `ElenaJoe dog at L5-S1 level was identified, and the skin and deeper tissues just below was localized with 1% lidocaine. Subsequently, a 22-gauge 3.5-inch spinal needle was advanced under a tunneled view fluoroscopic guidance just underneath the chin of the `Maniy dog at the right L5 Under lateral fluoroscopy, the needle was then advanced to the posterior border of the interforaminal space. After negative aspiration of CSF and blood and with no paresthesias, 1 mL Isovue 200 contrast dye was injected excellent epidurogram and outlining of the nerve root Subsequently, 3 mL of block solution containing 40 mg Depo-Medrol and 2 mL of 0.9% normal saline PF was injected. Needle was removed and the same procedure was repeated at the left L5-S1 level. Fatemeh trigger point injection done under sterile technique using 25-gauge needle, 2 trigger point injected on the right side lumbar paraspinal muscles and 2 on the left side lumbar paraspinal muscles, total of 4 trigger point injected, I injected 2 mL of ropivacaine 0.5% at each trigger point injection done after negative aspiration and there was no paresthesia during the injection COMPLICATIONS:none DISPOSITION / PLANS: The patient was placed in a supine position and transferred to the recovery area in a stable condition for observation. There was no evidence of lower extremity motor or sensory deficit after the procedure. Patient was discharged from the recovery room after meeting discharge criteria. Home discharge instructions were given to the patient by the staff. The patient was reexamined prior to discharge.
[2020-02-07] MEDS ORDERED: IV FLUID CONTINUATION 1,000 ML IV ONE (11:35)
--- NOTE | 2020-02-07 11:42 | FL ---
Fluoroscopy HISTORY: Pain 11 seconds fluoroscopy time supplied to the referring clinician. 4 intraoperative C-arm images docum ent the procedure. See dictated report from anesthesia.
[2020-02-08 08:41] VITALS: BP 134/86; PULSE 80; RESP 16; TEMP 95
== END 2020-02-07 12:07 | disposition home or self-care (01) ==
LOC: ORPAIN 10:43
PROVIDERS: ATTEND Specialist
DX: M47.26 Other spondylosis with radiculopathy, lumbar region (principal); M51.16 Intervertebral disc disorders with radiculopathy, lumbar region; M79.18 Myalgia, other site; Z88.8 Allergy status to other drugs, medicaments and biological substances
CPT/HCPCS: 81025; 20553; 64483; J2250; J1030; J3010; Q9966; J2795; 99152

== ENCOUNTER → 2020-02-27 | Outpatient (CLI) | payer OTHER ==
[2020-02-27 08:49] VITALS: BP 146/87; PULSE 93; RESP 16
--- NOTE | 2020-02-27 09:11 | P.PAINPG ---
Subjective Progress Note Date: 02/27/20 This is a follow-up visit for 44 years old female with a chronic history of severe low back pain with radiation to the lower extremity bilaterally she is diagnosed with lumbar spinal stenosis lumbar disc herniation at L5-S1, lumbar radiculopathy, lumbar spondylosis with lumbar facet arthropathy, we have done a transforaminal epidural steroid injection at the L5-S1 and lumbar trigger point injections on 02/07/2020.she returns today for follow-up. She reports good relief of right-sided back pain, however the procedure did not help her left sided back pain, which is more severe. Today, pain is located in the left low back radiating to left buttock, hip, back and side of left lower extremity up to ankle. Pain is rated as 8/10, described as cramping, sharp, stabbing. Pain is worse with walking and standing and better with injections. She currently takes Zanaflex for pain, this is not helping. she denies any motor or sensory deficit she denies any fever or night sweats and there is no change in the bowel movement or urination Review of systems is negative for chest pain, shortness of breath, new onset weakness, numbness/tingling, abdominal pain, malaise, fever, night sweats, chills, homicidal or suicidal ideation, or bowel or bladder incontinence. Objective Physical exam: Vitals: Reviewed in EMR GENERAL: Well appearing, in no acute distress PSYCH: Mood and affect is appropriate. Awake, alert, and oriented SKIN: Skin color, texture, turgor normal, no rashes or lesions HEENT: Normocephalic, atraumatic. EOM intact CV: No pedal edema RESP: Respirations are unlabored, no audible wheezing GI: Abdomen non-distended MUSCULOSKELETAL: Bilateral lower extremity strength is normal and symmetric. No atrophy or tone abnormalities are noted. Lumbar spine: Straight leg raising in the sitting position is positive on the left for radicular pain. Tenderness to palpation over the lumbar spine and paraspinous muscles bilaterally. Positive for pain with facet loading and back extension/rotation. Range of motion of lumbar spine is limited due to pain Buttocks: Tenderness to palpation over the bilateral PSIS, bilateral Lily test positive, bilateral Gainslin's test positive, bilateral sacral thrust positive Extremities: Peripheral joint ROM is full and pain free without obvious instability or laxity in all four extremities. No edema or skin discolorations noted. Gait: Gait is antalgic NEUR: Bilateral lower extremity coordination and muscle stretch reflexes are physiologic and symmetric. No loss of sensation is noted. Assessment and Plan Plan: Assessment and plan=1-lumbar radiculopathy. 2-lumbar disc herniation at the L5-S1. 3-lumbar spinal stenosis. 4-lumbar spondylosis. 5-myofascial pain syndrome and lumbar paravertebral muscles. 6bilateral sacroiliitis Patient underwent bilateral transforaminal epidural steroid injections, she had relief of right-sided pain, however it did not help her left-sided pain. She could benefit from bilateral SI joint injections She had no relief from Zanaflex, I asked her to stop this medication. I have sent her prescription for moving 7.5 mg twice a day60 tablets with one refill I counseled her for 3 minutes on the importance of smoking cessation as it pertains to Gen. health and chronic pain. She is working on quitting smoking, she smokes a half pack per day Time with Patient: Less than 30 PQRS Measure Charge Sheet Measure #130: Documentation of Current Meds in Medical Chart: Patient's medications documented in chart Measure #226: Tobacco Use: Screen & Cessation Intervention: Pt screened for tobacco use AND intervention given Measure #111: Pneumonia Vaccination: Pneumococcal vaccine NOT administered or previously given Measure #47: Advance Care Plan: Advance care planning discussed & documented, pt chose/unable to give Measure #412: Opioid Treatment Agreement: No documentation of signed opioid treatment agreement Measure #408: Opioid Therapy Follow-up Evaluation: Patient had NO f/u eval minimum every 3 months during opioid therapy Measure #317: Preventitive Care & Scrn High Bld Press & F/U: Pre-hypertensive or hypertensive BP documented, pt will f/u with PCP Measure #128: Body Mass Index (BMI) Screening & Follow-up: BMI documented within normal parameters Measure #131: Pain Assessment & Follow-up: Pain positive & plan documented, Follow-up scheduled Measure #431: Unhealthy Alcohol Use Preventative Care & Scrn: Patient not identified as an unhealthy alcohol user Objective - Vital Signs Vital signs: Intake & Output 02/25/20 02/26/20 02/26/20 18:59 06:59 18:59 Weight 58.967 kg PQRS Measure Charge Sheet PQRS Narrative: Smoking Status Current every day smoker Pain Intensity [Left Lower 9 Back] Scale Used Numeric (1 - 10) Hx Alcohol Use (MH) Yes Home Medications: Ambulatory Orders Aspirin/Acetaminophen/Caffeine [Goody's Ex-Str Powder Packet] 1 each PO Q4HR PRN 01/22/20 buPROPion SR [Wellbutrin Sr] 150 mg PO BID 01/22/20 Meloxicam [Mobic] 7.5 mg PO BID #60 tab 02/27/20 Controlled Substance Measures - Controlled Substance Measures Is patient prescribed a controlled substance at discharge?: No
== END | disposition home or self-care (01) ==
LOC: PNWHC3 08:05
PROVIDERS: ATTEND Anesthesiology
DX: M48.061 Spinal stenosis, lumbar region without neurogenic claudication (principal); M47.26 Other spondylosis with radiculopathy, lumbar region; M79.18 Myalgia, other site; M46.1 Sacroiliitis, not elsewhere classified; M51.16 Intervertebral disc disorders with radiculopathy, lumbar region; F17.200 Nicotine dependence, unspecified, uncomplicated; Z79.891 Long term (current) use of opiate analgesic; Z79.82 Long term (current) use of aspirin; Z79.899 Other long term (current) drug therapy
CPT/HCPCS: 99211

== ENCOUNTER 2020-03-06 09:38 | Day surgery (SDC) | payer OTHER ==
[2020-03-04 16:11] VITALS: BMI 23.8
[2020-03-06 09:57] VITALS: TEMP 98.1
[2020-03-06] MEDS ORDERED: IOPAMIDOL M200 10 ML VIAL ONE (10:21)
[2020-03-06] MEDS ORDERED: ROPIVACAINE 5MG/ML 20ML VIAL ONE (10:21)
[2020-03-06] MEDS ORDERED: TRIAMCINOLONE ACETONIDE 40 MG/ML 1 ML VIAL ONE (10:21)
[2020-03-06] MEDS ORDERED: MIDAZOLAM 2 MG/2 ML VIAL ONE (10:21)
[2020-03-06] MEDS ORDERED: fentaNYL (PF) 50 MCG/ML 2 ML AMP ONE (10:21)
--- NOTE | 2020-03-06 10:36 | P.PCN ---
Date of Procedure: 03/06/20 Description of Procedure: Preoperative diagnoses: bilateral sacroilitis Postoperative diagnoses: bilateral sacroilitis. Procedure: bilateral sacroiliac joint steroid injection under fluoroscopic guidance. Surgeon: Sanju Holley MD Anesthesia: 4 mL of 1% lidocaine and moderate sedation per hospital guidelines, sedation time 10 Fluoroscopy was used for the procedure and fluoroscopic images were saved to the radiology portion of the patient's chart. EBL: None Procedure indication: The patient had a history of severe chronic low back pain, diagnosed with sacroiliitis unresponsive to conservative treatment. Procedure description: The patient was seen and identified in the preoperative holding area, risks and benefits and alternative of the procedure and possible complications discussed with the patient, and patient agreed with the preceding, patient signed the consent, an IV was started, and vital signs were monitored and were stable throughout the procedure, patient was placed in the prone position on table and the lumbosacral area was prepped and draped with a sterile fashion, vital signs were closely monitored during the procedure, the fluoroscopy camera was placed in the contralateral oblique view on the bilateral sacroiliac joint and the lower part of the joint was identified . Then the skin and subcutaneous tissue was anesthetized using 2 mL of 1% lidocaine then a 22- gauge Quincke-type spinal needle advanced slowly under fluoroscopy and placed in the posterior and inferior border of the right sacroiliac joint, placement confirmed with AP and lateral view, and after appropriate needle placement confirmed and after negative aspiration for heme, 1 mL of Isovue 200 was injected revealing intra-articular spread. Then a solution consisting of 2 ml of ropivacaine 0.5% and 40 mg of Kenalog injected after negative aspiration, no paresthesia during the injection, no resistance to injection, and the needle was removed. The procedure was then repeated on the left side. Total of 80 mg of Kenalog was used for the procedure. Patient tolerated the procedure well without any complication. The patient was returned to supine position after the back was cleaned and a Band-Aid applied, the patient was transported to recovery room in stable condition and monitored for 30 minutes before being discharged home. The patient will follow up for repeat procedure if needed in a few weeks
[2020-03-06] MEDS ORDERED: IV FLUID CONTINUATION 1,000 ML IV ONE (10:41)
[2020-03-06 10:45] VITALS: RESP 14
--- NOTE | 2020-03-06 10:48 | FL ---
EXAMINATION TYPE: FL guided pain mgmt statistic DATE OF EXAM: 03/06/2020 CLINICAL HISTORY: Sacroiliac joint pain. TECHNIQUE: Fluoroscopy. COMPARISON: None. FINDINGS: Fluoroscopic guidance was provided during pain relief procedure performed by Dr. Holley . A total of 5 seconds of fluoroscopic time was utilized during the procedure and two spot images are acquired. Images acquired shows needle localization at level of bilateral sacroiliac joints. IMPRESSION: As Above.
[2020-03-06 10:59] VITALS: BP 147/88; PULSE 80
== END 2020-03-06 11:08 | disposition home or self-care (01) ==
LOC: ORPAIN 09:38
PROVIDERS: ATTEND Anesthesiology
DX: G89.29 Other chronic pain (principal); M46.1 Sacroiliitis, not elsewhere classified; M53.3 Sacrococcygeal disorders, not elsewhere classified; Z88.8 Allergy status to other drugs, medicaments and biological substances
CPT/HCPCS: 27096; J2250; J3301; J3010; Q9966; J2795; 99152

== ENCOUNTER → 2020-04-18 | Outpatient (CLI) | payer OTHER ==
--- NOTE | 2020-04-18 14:27 | EST ---
EXERCISE STRESS AGE: 44 SEX: Female. HT: 5'3" WT: 282 lbs. PROTOCOL: Roger STAGE: 3 DURATION OF EXERCISE: 6:15 HEART RATE REST: 100 BLOOD PRESSURE REST: 151/79 MAXIMUM HEART RATE ACHIEVED: 175 MAXIMUM BLOOD PRESSURE: 199/93 85% MPHR: 150 100% MPHR: 177 METS: 7.5 INDICATIONS: Chest pain. CLINICAL INFORMATION: Baseline EKG revealed normal sinus rhythm without significant ST-T changes. Patient walked on a standard Roger protocol for 6 minutes 15 seconds, achieved a maximal heart rate of 168 beats per minute which is well above 85% of predicted maximal. She developed fatigue and shortness of breath but did not have any angina or any arrhythmia. There were no EKG changes to indicate ischemia. IMPRESSION: 1. By EKG criteria, this is a negative stress test with limited exercise capacity. 2. The nuclear scan results which are more pertinent will be reported by the radiologist. MMODL / IJN: [id number] /
== END | disposition home or self-care (01) ==
LOC: RADNMMAIN 10:33
PROVIDERS: ATTEND Family Medicine
DX: R07.89 Other chest pain (principal); R20.0 Anesthesia of skin
CPT/HCPCS: 93017

== ENCOUNTER 2020-05-15 08:41 | Day surgery (SDC) | payer OTHER ==
[2020-05-14 10:26] VITALS: BMI 23.9
[2020-05-15 09:03] VITALS: TEMP 98
[2020-05-15] MEDS ORDERED: LIDOCAINE 1% (10MG/ML) FOR IV START INTRADERMA ONE (09:10)
[2020-05-15] MEDS ORDERED: PROPOFOL 10 MG/ML 20 ML VIAL IV ONE (09:21)
--- NOTE | 2020-05-15 09:37 | P.PCN ---
Date of Procedure: 05/15/20 Description of Procedure: BRIEF HISTORY: Patient is a 44-year-old female presents for outpatient EGD for evaluation of GERD. She reports frequent symptoms of chest and epigastric pain as well as reflux. Symptoms have the morning. She started on Protonix daily. She does report eating late at night. PROCEDURE PERFORMED: Esophagogastroduodenoscopy with biopsy. PREOPERATIVE DIAGNOSIS: GERD. ESTIMATED BLOOD LOSS: Minimal. IV sedation per anesthesia. PROCEDURE: After informed consent was obtained, the patient was brought into the endoscopy unit. IV sedation was administered by Anesthesia under continuous monitoring. Initially the Olympus GIF-190 video endoscope was inserted into the mouth. Esophagus intubated without any difficulty. It was gradually advanced into the stomach and duodenum and carefully examined. The bulb and the second part of the duodenum appeared normal, with biopsies taken. The scope at this time was withdrawn to the stomach, adequately insufflated with air, and upon careful examination, mucosa of the antrum, body, cardia and the fundus appeared normal, except for some mild punctate erythema in the antrum suggestive of mild gastritis with biopsies of the antrum and body taken. The scope was then withdrawn into the esophagus. The GE junction was located at 37 cm from the incisors and biopsies. The esophagus appeared normal. There were no erosions or ulcerations seen and the patient tolerated the procedure well. IMPRESSION: 1. Mild gastritis. 2. Biopsy of the antrum and body, GE junction and duodenum. RECOMMENDATIONS: The findings of this examination were discussed with the patient and her . Okay to resume diet. Okay to resume medications. Continue Protonix therapy. GERD lifestyle modifications including avoiding eating to 3 hours prior to bed discussed with the patient. The patient instructed to try [id number] Pepcid daily at bedtime to see if this helps with her morning symptoms of reflux. Await pathology from biopsies.
[2020-05-15 09:57] VITALS: RESP 16
[2020-05-15 10:03] VITALS: BP 123/73; PULSE 72
== END 2020-05-15 10:22 | disposition home or self-care (01) ==
LOC: ORWHC2ENDO 08:41
PROVIDERS: ATTEND Internal Medicine
DX: K29.50 Unspecified chronic gastritis without bleeding (principal); K22.8 Other specified diseases of esophagus; K21.9 Gastro-esophageal reflux disease without esophagitis; I10 Essential (primary) hypertension; F17.210 Nicotine dependence, cigarettes, uncomplicated; F32.9 Major depressive disorder, single episode, unspecified; M79.7 Fibromyalgia; Z88.8 Allergy status to other drugs, medicaments and biological substances; Z79.899 Other long term (current) drug therapy; Z79.82 Long term (current) use of aspirin; Z98.890 Other specified postprocedural states
CPT/HCPCS: 81025; 88305; 43239; J2704

== ENCOUNTER 2021-09-24 17:14 | Observation (INO) | payer OTHER ==
[2021-09-24 17:52] LABS: Basophils % (A) 1 %; Eosinophils # (A) 0.1 k/uL (0-0.7); Eosinophils % (A) 2 %; HCT 40.6 % (34.0-46.0); HGB 13.3 gm/dL (11.4-16.0); Lymphocytes # (A) 1.6 k/uL (1.0-4.8); Lymphocytes % (A) 23 %; MCH 30.4 pg (25.0-35.0); MCHC 32.8 g/dL (31.0-37.0); MCV 92.7 fL (80.0-100.0); Mean Platelet Volume 7.6; Monocytes # (A) 0.5 k/uL (0-1.0); Monocytes % (A) 7 %; Neutrophils # (A) 4.8 k/uL (1.3-7.7); Neutrophils % (A) 67 %; Platelet Count 228 k/uL (150-450); RBC 4.38 m/uL (3.80-5.40); RDW 14.6 % (11.5-15.5); WBC 7.1 k/uL (3.8-10.6)
[2021-09-24 18:03] LABS: ALT 11 U/L (4-34); AST 21 U/L (14-36); African American GFR (CKD) >90 (>60 ml/min/1.73 sqM); Albumin 4.4 g/dL (3.5-5.0); Alkaline Phosphatase 86 U/L (38-126); Anion Gap 8 mmol/L; Blood Urea Nitrogen 11 mg/dL (7-17); Carbon Dioxide 23 mmol/L (22-30); Chloride 107 mmol/L (98-107); Glucose 101 mg/dL (74-99); Magnesium 1.7 mg/dL (1.6-2.3); Non-African American GFR(CKD) 80 (>60 ml/min/1.73 sqM); Potassium 3.7 mmol/L (3.5-5.1); Sodium 138 mmol/L (137-145); Total Bilirubin 0.4 mg/dL (0.2-1.3); Total Protein 7.3 g/dL (6.3-8.2)
[2021-09-24 18:07] LABS: INR 0.9 (<1.2); Partial Thromboplastin Time 26.1 sec (22.0-30.0); Prothrombin Time 9.8 sec (9.0-12.0)
[2021-09-24] MEDS ORDERED: ASPIRIN 81 MG PO STA (18:09)
[2021-09-24] MEDS ORDERED: SODIUM CHLORIDE 0.9% 1,000 ML IV STA (18:09)
--- NOTE | 2021-09-24 18:12 | ED ---
General Adult HPI - General Chief complaint: Chest Pain Stated complaint: heart racing, sent by Time Seen by Provider: 09/24/21 17:50 Source: patient, RN notes reviewed Mode of arrival: ambulatory Limitations: no limitations - History of Present Illness Initial comments: 46-year-old female presents to the emergency Department with complaints of left- sided chest pain that radiates to the left shoulder. Patient states her symptoms began late last night and worsened this morning. She experienced mild dizziness and an episode of nausea and vomiting this morning. Did see her PCP who is concerned for PE due to tachycardia in the office. Patient states with deep breathing and she experiences pain in the right shoulder. Denies fever, chills, headache, vision changes, abdominal pain, constipation, diarrhea, dysuria, or hematuria. No recent long car rides or prolonged immobilization. Patient does not take any oral contraception. She does smoke half a pack of cigarettes daily. - Related Data Home Medications Medication Instructions Recorded Confirmed Pantoprazole Sodium [Protonix] 40 mg PO DAILY 05/14/20 09/24/21 amLODIPine [Norvasc] 5 mg PO DAILY 05/14/20 09/24/21 Escitalopram [Lexapro] 20 mg PO HS 09/24/21 09/24/21 QUEtiapine [SEROquel] 50 mg PO HS PRN 09/24/21 09/24/21 hydrOXYzine HCL [Atarax] 10 - 20 mg PO TID PRN 09/24/21 09/24/21 Allergies Allergy/AdvReac Type Severity Reaction Status Date / Time prochlorperazine Allergy LOCK JAW Verified 09/24/21 18:44 [From Compazine] prochlorperazine edisylate Allergy LOCK JAW Verified 09/24/21 18:44 [From Compazine] prochlorperazine maleate Allergy LOCK JAW Verified 09/24/21 18:44 [From Compazine] Review of Systems ROS Statement: Those systems with pertinent positive or pertinent negative responses have been documented in the HPI. ROS Other: All systems not noted in ROS Statement are negative. Past Medical History Past Medical History: Fibromyalgia, GERD/Reflux, Hypertension, Musculoskeletal Disorder Additional Past Medical History / Comment(s): upper abdomen pain when pressure applied,hx TMJ, hyper mobile joint disorder, sciatica. History of Any Multi-Drug Resistant Organisms: None Reported Past Surgical History: Section, Orthopedic Surgery Additional Past Surgical History / Comment(s): Right knee surgery, PAIN CLINIC PROCEDURES. Past Anesthesia/Blood Transfusion Reactions: No Reported Reaction Past Psychological History: Depression Smoking Status: Current every day smoker Past Alcohol Use History: None Reported Past Drug Use History: Marijuana - Past Family History Father Family Medical History: Asthma, Cancer Additional Family Medical History / Comment(s): Two types of cancer. Mother Family Medical History: Myocardial Infarction ([place]) Additional Family Medical History / Comment(s): from heart attack. General Exam Limitations: no limitations (Well-developed, well-nourished female in no acute distress. Initial temperature 98.3, pulse 103, recheck 88, respirations 16, blood pressure 138/83, pulse ox 100% on room air.) General appearance: alert, in no apparent distress ENT exam: Present: normal exam, normal oropharynx, mucous membranes moist Neck exam: Present: normal inspection, full ROM. Absent: tenderness, meningismus, lymphadenopathy Respiratory exam: Present: normal lung sounds bilaterally. Absent: respiratory distress, wheezes, rales, rhonchi, stridor Cardiovascular Exam: Present: regular rate, normal rhythm, normal heart sounds. Absent: systolic murmur, diastolic murmur, rubs, gallop, clicks GI/Abdominal exam: Present: soft, normal bowel sounds. Absent: distended, tenderness, guarding, rebound, rigid Neurological exam: Present: alert, oriented X3, CN II-XII intact Psychiatric exam: Present: normal affect, normal mood Skin exam: Present: warm, dry, intact, normal color. Absent: rash Course Vital Signs 09/24/21 09/24/21 09/24/21 17:21 19:14 21:10 Temperature 98.3 F Pulse Rate 103 H 90 73 Respiratory 16 18 16 Rate Blood Pressure 138/83 127/73 127/79 O2 Sat by Pulse 100 100 100 Oximetry 09/24/21 09/25/21 22:33 00:13 Temperature Pulse Rate 68 64 Respiratory 18 18 Rate Blood Pressure 127/73 121/75 O2 Sat by Pulse 99 98 Oximetry - Reevaluation(s) Reevaluation #1: 09/24/21 19:44 Patient updated on results from lab findings. Reviewed vital signs. Explained that based on the findings so far, I do not see any indicators for PE, however I'm not opposed to doing the CT if the patient is strongly compelled. Chest x- ray is still pending. Will reevaluate. 09/24/21 21:16 Heart Score 3 Medical Decision Making - Medical Decision Making 46-year-old female with a past medical history of hypertension and depression presents to the emergency department for evaluation of left-sided chest pain, onset last pain. Upon exam, patient is well-appearing and in no acute distress. She is resting comfortably at this time with a slightly elevated heart rate. Physical exam findings are unremarkable. Laboratory studies were reviewed. Troponin was negative, d-dimer 0.35. Chest x-ray shows no acute process. Findings were discussed with patient. Due to her age and risk factors of smoking and hypertension, it is recommended that patient be admitted to the hospital for serial enzymes; she is agreeable with this plan of care. This patient's care was discussed with my attending Dr. Shafer. - Lab Data Result diagrams: 09/24/21 17:43 09/24/21 17:43 Lab Results 09/24/21 09/24/21 09/24/21 Range/Units 17:43 17:43 17:43 WBC 7.1 (3.8-10.6) k/uL RBC 4.38 (3.80-5.40) m/uL Hgb 13.3 (11.4-16.0) gm/dL Hct 40.6 (34.0-46.0) % MCV 92.7 (80.0-100.0) fL MCH 30.4 (25.0-35.0) pg MCHC 32.8 (31.0-37.0) g/dL RDW 14.6 (11.5-15.5) % Plt Count 228 (150-450) k/uL MPV 7.6 Neutrophils % 67 % Lymphocytes % 23 % Monocytes % 7 % Eosinophils % 2 % Basophils % 1 % Neutrophils # 4.8 (1.3-7.7) k/uL Lymphocytes # 1.6 (1.0-4.8) k/uL Monocytes # 0.5 (0-1.0) k/uL Eosinophils # 0.1 (0-0.7) k/uL Basophils # 0.0 (0-0.2) k/uL PT 9.8 (9.0-12.0) sec INR 0.9 (<1.2) APTT 26.1 (22.0-30.0) sec D-Dimer (<0.60) mg/L FEU Sodium 138 (137-145) mmol/L Potassium 3.7 (3.5-5.1) mmol/L Chloride 107 (98-107) mmol/L Carbon Dioxide 23 (22-30) mmol/L Anion Gap 8 mmol/L BUN 11 (7-17) mg/dL Creatinine 0.88 (0.52-1.04) mg/dL Est GFR (CKD-EPI)AfAm >90 (>60 ml/min/1.73 sqM) Est GFR (CKD-EPI)NonAf 80 (>60 ml/min/1.73 sqM) Glucose 101 H (74-99) mg/dL Calcium 10.0 (8.4-10.2) mg/dL Magnesium 1.7 (1.6-2.3) mg/dL Total Bilirubin 0.4 (0.2-1.3) mg/dL AST 21 (14-36) U/L ALT 11 (4-34) U/L Alkaline Phosphatase 86 (38-126) U/L Troponin I (0.000-0.034) ng/mL Total Protein 7.3 (6.3-8.2) g/dL Albumin 4.4 (3.5-5.0) g/dL Urine Color Urine Appearance (Clear) Urine pH (5.0-8.0) Ur Specific [place] (1.001-1.035) Urine Protein (Negative) Urine Glucose (UA) (Negative) Urine Ketones (Negative) Urine Blood (Negative) Urine Nitrite (Negative) Urine Bilirubin (Negative) Urine Urobilinogen (<2.0) mg/dL Ur Leukocyte Esterase (Negative) Urine HCG, Qual (Not Detectd) 09/24/21 09/24/21 09/24/21 Range/Units 17:43 17:43 20:00 WBC (3.8-10.6) k/uL RBC (3.80-5.40) m/uL Hgb (11.4-16.0) gm/dL Hct (34.0-46.0) % MCV (80.0-100.0) fL MCH (25.0-35.0) pg MCHC (31.0-37.0) g/dL RDW (11.5-15.5) % Plt Count (150-450) k/uL MPV Neutrophils % % Lymphocytes % % Monocytes % % Eosinophils % % Basophils % % Neutrophils # (1.3-7.7) k/uL Lymphocytes # (1.0-4.8) k/uL Monocytes # (0-1.0) k/uL Eosinophils # (0-0.7) k/uL Basophils # (0-0.2) k/uL PT (9.0-12.0) sec INR (<1.2) APTT (22.0-30.0) sec D-Dimer 0.35 (<0.60) mg/L FEU Sodium (137-145) mmol/L Potassium (3.5-5.1) mmol/L Chloride (98-107) mmol/L Carbon Dioxide (22-30) mmol/L Anion Gap mmol/L BUN (7-17) mg/dL Creatinine (0.52-1.04) mg/dL Est GFR (CKD-EPI)AfAm (>60 ml/min/1.73 sqM) Est GFR (CKD-EPI)NonAf (>60 ml/min/1.73 sqM) Glucose (74-99) mg/dL Calcium (8.4-10.2) mg/dL Magnesium (1.6-2.3) mg/dL Total Bilirubin (0.2-1.3) mg/dL AST (14-36) U/L ALT (4-34) U/L Alkaline Phosphatase (38-126) U/L Troponin I <0.012 (0.000-0.034) ng/mL Total Protein (6.3-8.2) g/dL Albumin (3.5-5.0) g/dL Urine Color Light Yellow Urine Appearance Clear (Clear) Urine pH 5.0 (5.0-8.0) Ur Specific [place] 1.011 (1.001-1.035) Urine Protein Negative (Negative) Urine Glucose (UA) Negative (Negative) Urine Ketones Negative (Negative) Urine Blood Negative (Negative) Urine Nitrite Negative (Negative) Urine Bilirubin Negative (Negative) Urine Urobilinogen <2.0 (<2.0) mg/dL Ur Leukocyte Esterase Negative (Negative) Urine HCG, Qual (Not Detectd) 09/24/21 Range/Units 20:00 WBC (3.8-10.6) k/uL RBC (3.80-5.40) m/uL Hgb (11.4-16.0) gm/dL Hct (34.0-46.0) % MCV (80.0-100.0) fL MCH (25.0-35.0) pg MCHC (31.0-37.0) g/dL RDW (11.5-15.5) % Plt Count (150-450) k/uL MPV Neutrophils % % Lymphocytes % % Monocytes % % Eosinophils % % Basophils % % Neutrophils # (1.3-7.7) k/uL Lymphocytes # (1.0-4.8) k/uL Monocytes # (0-1.0) k/uL Eosinophils # (0-0.7) k/uL Basophils # (0-0.2) k/uL PT (9.0-12.0) sec INR (<1.2) APTT (22.0-30.0) sec D-Dimer (<0.60) mg/L FEU Sodium (137-145) mmol/L Potassium (3.5-5.1) mmol/L Chloride (98-107) mmol/L Carbon Dioxide (22-30) mmol/L Anion Gap mmol/L BUN (7-17) mg/dL Creatinine (0.52-1.04) mg/dL Est GFR (CKD-EPI)AfAm (>60 ml/min/1.73 sqM) Est GFR (CKD-EPI)NonAf (>60 ml/min/1.73 sqM) Glucose (74-99) mg/dL Calcium (8.4-10.2) mg/dL Magnesium (1.6-2.3) mg/dL Total Bilirubin (0.2-1.3) mg/dL AST (14-36) U/L ALT (4-34) U/L Alkaline Phosphatase (38-126) U/L Troponin I (0.000-0.034) ng/mL Total Protein (6.3-8.2) g/dL Albumin (3.5-5.0) g/dL Urine Color Urine Appearance (Clear) Urine pH (5.0-8.0) Ur Specific [place] (1.001-1.035) Urine Protein (Negative) Urine Glucose (UA) (Negative) Urine Ketones (Negative) Urine Blood (Negative) Urine Nitrite (Negative) Urine Bilirubin (Negative) Urine Urobilinogen (<2.0) mg/dL Ur Leukocyte Esterase (Negative) Urine HCG, Qual Not Detected (Not Detectd) - EKG Data EKG shows normal: sinus rhythm Rate: normal EKG Comments: EKG was obtained at 1732 shows normal sinus rhythm with ventricular rate 91, NC interval 152, QRS duration 73, QT/QTC 340/389. Interpretation normal ECG. Disposition Clinical Impression: Chest pain Disposition: ADMITTED IP TO THIS [facility] Condition: Serious Decision Date: 09/24/21 Decision Time: 21:26
--- NOTE | 2021-09-24 19:43 | XR ---
EXAMINATION: XR chest 2V DATE AND TIME: 09/24/2021 6:17 PM CLINICAL INDICATION: Tachycardia; Chest Pain TECHNIQUE: Departmental protocol COMPARISON: 11/12/2015 FINDINGS: The lungs are clear. The pleural spaces are negative. The cardiac silhouette is not enlarged. The remainder of the mediastinal silhouette is unremarkable. The skeletal structures and soft tissues are negative for acute findings. IMPRESSION: NO ACUTE PROCESS.
[2021-09-24 20:39] LABS: Appearance,Urine Clear (Clear); Bilirubin,Urine Negative (Negative); Blood,Urine Negative (Negative); Color,Urine Light Yellow; Glucose,Urine (UA) Negative (Negative); Ketones,Urine Negative (Negative); Leukocyte Esterase,Urine Negative (Negative); Nitrite,Urine Negative (Negative); Protein,Urine Negative (Negative); Specific Gravity,Urine 1.011 (1.001-1.035); Urobilinogen,Urine <2.0 mg/dL (<2.0)
[2021-09-24] MEDS ORDERED: KETOROLAC 15 MG/ML 1 ML VIAL IVP PRN (21:26)
[2021-09-24] MEDS ORDERED: ALPRAZolam 0.25 MG TAB PO PRN (21:26)
[2021-09-24] MEDS ORDERED: ACETAMINOPHEN TAB 325 MG TAB PO PRN (21:26)
[2021-09-24] MEDS ORDERED: NALOXONE 0.4 MG/ML 1 ML VIAL IV PRN (21:26)
[2021-09-24] MEDS ORDERED: ONDANSETRON 4 MG/2 ML VIAL IVP PRN (21:26)
--- NOTE | 2021-09-25 03:56 | P.HPIM ---
History of Present Illness H&P Date: 09/24/21 Chief Complaint: Chest 46-year-old female with past medical history of high blood pressure, fibromyalgia Patient comes in upon recommendation of her primary care doctor due to her complaints of chest pain upon evaluation by her primary care doctor he found that her EKG showing sinus tachycardia for which he recommended that she discuss the hospital for evaluation. She reports that the day before at around 11 PM she started feeling that her heart is pounding and this has lasted throughout the day and asked day was associated with some feeling nauseous and dizzy in the morning she had one episode of vomiting nonbloody nonbilious. This continued throughout the day for which trigger that she goes to her primary care doctor for evaluation. She describes the pain as left-sided and radiates to the back and left arm and right digits 9 out of 10 in severity sharp pain. Especially on the right side when she takes a deep breath. This pain started all of a sudden while she was resting doing nothing She denies any cardiac disease in the past she denies any cardiac workup in the past. She admits to tobacco smoking and marijuana denies any heavy alcohol She reports family history of premature CAD in her mother at age of 47 and her dad had multiple cardiac conditions Initial workup in the ED was pretty much unremarkable patient admitted for cardiology evaluation and monitoring Review of Systems Pertinent positives as noted in HPI. All other systems were reviewed and are negative Past Medical History Past Medical History: Fibromyalgia, GERD/Reflux, Hypertension, Musculoskeletal Disorder Additional Past Medical History / Comment(s): upper abdomen pain when pressure applied,hx TMJ, hyper mobile joint disorder, sciatica. History of Any Multi-Drug Resistant Organisms: None Reported Past Surgical History: Section, Orthopedic Surgery Additional Past Surgical History / Comment(s): Right knee surgery, PAIN CLINIC PROCEDURES. Past Anesthesia/Blood Transfusion Reactions: No Reported Reaction Past Psychological History: Depression Additional Psychological History / Comment(s): and lives in the family home with her , her son and multiple other family members. She is a primary caregiver of her son. Ongoing tobacco user. Denies alcohol use or recreational drug use. No experience. No international travel. No animal exposures Smoking Status: Current every day smoker Past Alcohol Use History: None Reported Additional Past Alcohol Use History / Comment(s): SMOKES 1/2 PPD SINCE AGE 17. Past Drug Use History: Marijuana Additional Drug Use History / Comment(s): Occasional Marijuana use, aware no use 24 hrs prior to procedure. - Past Family History Father Family Medical History: Asthma, Cancer Additional Family Medical History / Comment(s): Two types of cancer. Mother Family Medical History: Myocardial Infarction ([place]) Additional Family Medical History / Comment(s): from heart attack. Medications and Allergies Home Medications Medication Instructions Recorded Confirmed Type Pantoprazole Sodium [Protonix] 40 mg PO DAILY 05/14/20 09/24/21 History amLODIPine [Norvasc] 5 mg PO DAILY 05/14/20 09/24/21 History Escitalopram [Lexapro] 20 mg PO HS 09/24/21 09/24/21 History QUEtiapine [SEROquel] 50 mg PO HS PRN 09/24/21 09/24/21 History hydrOXYzine HCL [Atarax] 10 - 20 mg PO TID PRN 09/24/21 09/24/21 History Allergies Allergy/AdvReac Type Severity Reaction Status Date / Time prochlorperazine Allergy LOCK JAW Verified 09/24/21 18:44 [From Compazine] prochlorperazine edisylate Allergy LOCK JAW Verified 09/24/21 18:44 [From Compazine] prochlorperazine maleate Allergy LOCK JAW Verified 09/24/21 18:44 [From Compazine] Physical Exam Vitals: Vital Signs Temp Pulse Pulse Resp BP BP Pulse Ox 09/25/21 02:00 98.1 F 69 18 116/76 96 09/25/21 00:13 64 18 121/75 98 09/24/21 22:33 68 18 127/73 99 09/24/21 21:10 73 16 127/79 100 09/24/21 19:14 90 18 127/73 100 09/24/21 17:21 98.3 F 103 H 16 138/83 100 Intake and Output 09/24/21 09/24/21 09/25/21 14:59 22:59 06:59 Other: Weight 73.482 kg 73.482 kg Constitutional: No acute distress, conversant, pleasant Eyes: Anicteric sclerae, moist conjunctiva, Pupils equal round reactive to light ENMT: NC/AT Oropharynx clear, no erythema, or exudates Neck: Supple, FROM, no masses, or JVD No carotid bruits No thyromegaly Lungs: Clear to auscultation Clear to percussion Normal respiratory effort, no accessory muscle use Cardiovascular: Heart regular in rate and rhythm, No murmurs, gallops, or rubs No peripheral edema Abdominal: Soft Nontender, no guarding, rebound or rigidity Abdomen moving with respiration Normoactive bowel sounds No hepatomegaly, No splenomegaly No palpable mass No abdominal wall hernia noted Skin: Normal temperature, tone, texture, turgor No induration No subcutaneous nodules No rash, lesions No ulcers Extremities: No digital cyanosis No clubbing Pedal pulses intact and symmetrical Radial pulses intact and symmetrical No calf tenderness Psychiatric: Alert and oriented to person, place and time Appropriate affect fair judgement Neuro Muscles Strength 5/5 in all 4 extremities Sensation to light touch grossly present throughout Cranial nerves II-XII grossly intact No focal sensory deficits Lymphatics: no palpable cervical or supraclavicular , or inguinal lymph nodes Results CBC & Chem 7: 09/24/21 17:43 09/24/21 17:43 Labs: Abnormal Lab Results - Last 24 Hours (Table) 09/24/21 Range/Units 17:43 Glucose 101 H (74-99) mg/dL Thrombosis Risk Factor Assmnt - Choose All That Apply Each Factor Represents 1 point: Age 41-60 years, Obesity (BMI >25) Thrombosis Risk Factor Assessment Total Risk Factor Score: 2 Thrombosis Risk Factor Assessment Level: Low Risk Assessment and Plan Assessment: Atypical chest pain rule out ACS Trend troponins Cardiac monitoring Cardiology consult Aspirin, statin Nitro when necessary Check TSH with reflex to free T4, lipid panel, A1c risk stratification Continue home meds of amlodipine Xanax for anxiety Heparin subcu 3 times a day for DVT prophylaxis PPI for GI prophylaxis Full code Anticipated length of stay less than 2 midnights
[2021-09-25 04:17] LABS: Basophils % (A) 1 %; Eosinophils # (A) 0.1 k/uL (0-0.7); Eosinophils % (A) 2 %; HCT 38.4 % (34.0-46.0); HGB 12.3 gm/dL (11.4-16.0); Lymphocytes # (A) 1.9 k/uL (1.0-4.8); Lymphocytes % (A) 32 %; MCHC 32.1 g/dL (31.0-37.0); MCV 93.5 fL (80.0-100.0); Mean Platelet Volume 7.7; Monocytes # (A) 0.5 k/uL (0-1.0); Monocytes % (A) 8 %; Neutrophils # (A) 3.4 k/uL (1.3-7.7); Neutrophils % (A) 56 %; Platelet Count 203 k/uL (150-450); RBC 4.11 m/uL (3.80-5.40); RDW 14.5 % (11.5-15.5)
[2021-09-25 04:41] LABS: African American GFR (CKD) >90 (>60 ml/min/1.73 sqM); Anion Gap 5 mmol/L; Blood Urea Nitrogen 8 mg/dL (7-17); Calcium 9.2 mg/dL (8.4-10.2); Carbon Dioxide 22 mmol/L (22-30); Chloride 110 mmol/L (98-107); Glucose 88 mg/dL (74-99); Non-African American GFR(CKD) >90 (>60 ml/min/1.73 sqM); Potassium 3.8 mmol/L (3.5-5.1); Sodium 137 mmol/L (137-145)
[2021-09-25] MEDS ORDERED: PANTOPRAZOLE 40 MG TABLET PO SCH (07:30)
[2021-09-25 08:00] VITALS: BP 114/59; PULSE 62; RESP 18; TEMP 98.1
[2021-09-25] MEDS ORDERED: HEPARIN SODIUM,PORCINE/PF 5,000 UNIT/0.5 ML SYRINGE SQ SCH (08:00)
[2021-09-25] MEDS ORDERED: ATORVASTATIN 40 MG TAB PO SCH (09:00)
[2021-09-25] MEDS ORDERED: amLODIPine 5 MG TAB PO SCH (09:00)
[2021-09-25] MEDS ORDERED: FAMOTIDINE 20 MG TAB PO SCH (09:00)
--- NOTE | 2021-09-25 11:45 | P.CRDCN ---
History of Present Illness Consult date: 09/25/21 History of present illness: HISTORY OF PRESENT ILLNESS: This is a 46-year-old female with a past medical history significant for hypertension, nicotine dependence, and daily marijuana use. 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 We have been asked to see the patient in consultation for chest pain. Patient examined at the bedside. Patient states she started having palpitations on Tuesday that continued into yesterday. She states the palpitations would come and go. She reports having palpitations in the past but states they usually would go away after a minute or 2 however at this time the palpitations persisted. She also reports chest discomfort that went into her back. She reports an episode of nausea and 1 episode of vomiting yesterday morning. The patient states the pain was worse with deep inspiration. She denies any tenderness with chest wall the patient states she is a current cigarette smoker and smokes half a pack per day. She also reports daily marijuana use. She reports occasional alcohol use. She reports a family history of coronary artery disease and states her mom of a heart attack at the age of 47 and her dad also has a history of CAD. * EKG reveals sinus mechanism with no signs of acute ischemia * Chest xray negative for acute process * Laboratory data: W BC 6.0. Hemoglobin 12.3. Platelet count 203. Sodium 137. Potassium 3.8. BUN 8. Creatinine 0.77. Troponin negative 3. TSH 3.620. * Current home cardiac medications include Norvasc 5 mg daily * The patient underwent stress test in April 2020 which was negative for ischemia REVIEW OF SYSTEMS: At the time of my exam: CONSTITUTIONAL: Denies fever or chills. HEENT: Denies blurred vision, vision changes, or eye pain. Denies hemoptysis CARDIOVASCULAR: Denies chest pain. Denies orthopnea. Denies PND. Denies palpitations RESPIRATORY: Denies shortness of breath. GASTROINTESTINAL: Denies abdominal pain. Denies nausea or vomiting. HEMATOLOGIC: Denies bleeding disorders. GENITOURINARY: Denies any blood in urine. SKIN: Denies pruitis. Denies rash. PHYSICAL EXAM: VITAL SIGNS: Reviewed. GENERAL: Well-developed in no acute distress. HEENT: Head is normocephalic. Pupils are equal, round. Sclerae anicteric. Mucous membranes of the mouth are moist. Neck supple. No JVD or thyromegaly LUNGS: Respirations even and unlabored. Lungs essentially clear to auscultation bilaterally. HEART: Regular rate and rhythm. S1 and S2 heard. ABDOMEN: Soft. Nondistended. Nontender. EXTREMITIES: Normal range of motion. No clubbing or cyanosis. Peripheral pulses intact. No lower extremity edema NEUROLOGIC: Awake and alert. Oriented x 3. ASSESSMENT: Palpitations Chest pain, troponins negative 3 Hypertension Family history of premature coronary artery disease Nicotine dependence Daily marijuana use Hypothyroidism PLAN: An acute coronary event has been ruled out Resume home cardiac medications Obtain 2-D echo to assess cardiac structure and function Smoking cessation recommended Abstinence from marijuana encouraged Patient will receive a 2 week event monitor at the time of discharge She is to follow up on an outpatient basis with Dr. Ford Nurse practitioner note has been reviewed by physician. Signing provider agrees with the documented findings, assessment, and plan of care. Past Medical History Past Medical History: Fibromyalgia, GERD/Reflux, Hypertension, Musculoskeletal Disorder Additional Past Medical History / Comment(s): upper abdomen pain when pressure applied,hx TMJ, hyper mobile joint disorder, sciatica. History of Any Multi-Drug Resistant Organisms: None Reported Past Surgical History: Section, Orthopedic Surgery Additional Past Surgical History / Comment(s): Right knee surgery, PAIN CLINIC PROCEDURES. Past Anesthesia/Blood Transfusion Reactions: No Reported Reaction Past Psychological History: Depression Smoking Status: Current every day smoker Past Alcohol Use History: None Reported Past Drug Use History: Marijuana - Past Family History Father Family Medical History: Asthma, Cancer Additional Family Medical History / Comment(s): Two types of cancer. Mother Family Medical History: Myocardial Infarction ([place]) Additional Family Medical History / Comment(s): from heart attack. Medications and Allergies Home Medications Medication Instructions Recorded Confirmed Type Pantoprazole Sodium [Protonix] 40 mg PO DAILY 05/14/20 09/24/21 History amLODIPine [Norvasc] 5 mg PO DAILY 05/14/20 09/24/21 History Escitalopram [Lexapro] 20 mg PO HS 09/24/21 09/24/21 History QUEtiapine [SEROquel] 50 mg PO HS PRN 09/24/21 09/24/21 History hydrOXYzine HCL [Atarax] 10 - 20 mg PO TID PRN 09/24/21 09/24/21 History Allergies Allergy/AdvReac Type Severity Reaction Status Date / Time prochlorperazine Allergy LOCK JAW Verified 09/24/21 18:44 [From Compazine] prochlorperazine edisylate Allergy LOCK JAW Verified 09/24/21 18:44 [From Compazine] prochlorperazine maleate Allergy LOCK JAW Verified 09/24/21 18:44 [From Compazine] Physical Exam Vitals: Vital Signs Temp Pulse Pulse Resp BP BP Pulse Ox 09/25/21 08:00 98.1 F 62 18 114/59 100 09/25/21 04:00 98 F 64 14 119/60 100 09/25/21 02:00 98.1 F 69 18 116/76 96 09/25/21 00:13 64 18 121/75 98 09/24/21 22:33 68 18 127/73 99 09/24/21 21:10 73 16 127/79 100 09/24/21 19:14 90 18 127/73 100 09/24/21 17:21 98.3 F 103 H 16 138/83 100 Intake and Output 09/24/21 09/25/21 09/25/21 22:59 06:59 14:59 Other: Weight 73.482 kg 73.482 kg Results 09/25/21 03:47 09/25/21 03:47 Cardiac Enzymes 09/24/21 09/24/21 09/25/21 Range/Units 17:43 17:43 00:15 AST 21 (14-36) U/L Troponin I <0.012 <0.012 (0.000-0.034) ng/mL 09/25/21 Range/Units 03:22 AST (14-36) U/L Troponin I <0.012 (0.000-0.034) ng/mL Coagulation 09/24/21 Range/Units 17:43 PT 9.8 (9.0-12.0) sec APTT 26.1 (22.0-30.0) sec CBC 09/24/21 09/25/21 Range/Units 17:43 03:47 WBC 7.1 6.0 (3.8-10.6) k/uL RBC 4.38 4.11 (3.80-5.40) m/uL Hgb 13.3 12.3 (11.4-16.0) gm/dL Hct 40.6 38.4 (34.0-46.0) % Plt Count 228 203 (150-450) k/uL Comprehensive Metabolic Panel 09/24/21 09/25/21 Range/Units 17:43 03:47 Sodium 138 137 (137-145) mmol/L Potassium 3.7 3.8 (3.5-5.1) mmol/L Chloride 107 110 H (98-107) mmol/L Carbon Dioxide 23 22 (22-30) mmol/L BUN 11 8 (7-17) mg/dL Creatinine 0.88 0.77 (0.52-1.04) mg/dL Glucose 101 H 88 (74-99) mg/dL Calcium 10.0 9.2 (8.4-10.2) mg/dL AST 21 (14-36) U/L ALT 11 (4-34) U/L Alkaline Phosphatase 86 (38-126) U/L Total Protein 7.3 (6.3-8.2) g/dL Albumin 4.4 (3.5-5.0) g/dL Current Medications Generic Name Dose Route Start Last Admin Trade Name Freq PRN Reason Stop Dose Admin Acetaminophen 650 mg 09/24/21 21:26 Acetaminophen Tab 325 Mg Tab PO Q6HR PRN Mild Pain or Fever > 100.5 Alprazolam 0.25 mg 09/24/21 21:26 Alprazolam 0.25 Mg Tab PO Q6HR PRN Anxiety Amlodipine Besylate 5 mg 09/25/21 09:00 09/25/21 08:01 Amlodipine 5 Mg Tab PO 5 mg DAILY STAR Administration Atorvastatin Calcium 40 mg 09/25/21 09:00 09/25/21 08:01 Atorvastatin 40 Mg Tab PO 40 mg DAILY STAR Administration Escitalopram Oxalate 20 mg 09/25/21 21:00 Escitalopram 20 Mg Tab PO HS STAR Famotidine 20 mg 09/25/21 09:00 09/25/21 08:01 Famotidine 20 Mg Tab PO 20 mg BID STAR Administration Heparin Sodium (Porcine) 5,000 unit 09/25/21 08:00 09/25/21 08:01 Heparin Sodium,Porcine/Pf 5,000 Unit/0.5 Ml Syringe SQ 5,000 unit Q8HR STAR Administration Ketorolac Tromethamine 15 mg 09/24/21 21:26 Ketorolac 15 Mg/Ml 1 Ml Vial IVP 09/27/21 21:28 Q6HR PRN Moderate Pain Naloxone HCl 0.2 mg 09/24/21 21:26 Naloxone 0.4 Mg/Ml 1 Ml Vial IV Q2M PRN Opioid Reversal Ondansetron HCl 4 mg 09/24/21 21:26 Ondansetron 4 Mg/2 Ml Vial IVP Q8HR PRN Nausea And Vomiting Pantoprazole Sodium 40 mg 09/25/21 07:30 09/25/21 06:31 Pantoprazole 40 Mg Tablet PO Not Given [id number] STAR Intake and Output 09/24/21 09/25/21 09/25/21 22:59 06:59 14:59 Other: Weight 73.482 kg 73.482 kg 09/25/21 03:47 09/25/21 03:47
--- NOTE | 2021-09-25 12:00 | ECHOF ---
Referral Reason:LV function, chest pain MEASUREMENTS -------- HEIGHT: 162.6 cm WEIGHT: 73.5 kg BP: RVIDd: 2.3 cm (< 3.3) IVSd: 0.9 cm (0.6 - 1.1) LVIDd: 4.2 cm (3.9 - 5.3) LVPWd: 0.9 cm (0.6 - 1.1) IVSs: 1.4 cm LVIDs: 2.9 cm LVPWs: 1.2 cm LAESV Index (A-L): 25.95 ml/m Ao Diam: 2.3 cm (2.0 - 3.7) AV Cusp: 1.7 cm (1.5 - 2.6) MV EXCURSION: 14.382 mm (> 18.000) MV EF SLOPE: 51 mm/s (70 - 150) EPSS: 0.8 cm MV E Jose: 0.55 m/s MV DecT: 274 ms MV A Jose: 0.88 m/s MV E/A Ratio: 0.62 AR PHT: 413 ms RAP: 5.00 mmHg RVSP: 27.27 mmHg FINDINGS -------- Sinus rhythm. This was a technically adequate study. LV size, wall thickness and systolic function are normal, with an EF greater than 55%. The left homa tricular size is normal. The right ventricle is normal in size. Normal LA size by volume 22+/-6 ml/m2. The right atrial size is normal. Aortic valve is trileaflet and is mildly thickened. There is moderate aortic regurgitation. The mitral valve is normal. Mild mitral regurgitation is present. The tricuspid valve appears structurally normal. Mild tricuspid regurgitation present. Right vent ricular systolic pressure is normal at < 35 mmHg. There is no pulmonic regurgitation present. The aortic root size is normal. There is no pericardial effusion. CONCLUSIONS -------- 1. LV size, wall thickness and systolic function are normal, with an EF greater than 55%. 2. Normal LA size by volume 22+/-6 ml/m2. 3. There is moderate aortic regurgitation. 4. Mild mitral regurgitation is present. 5. Mild tricuspid regurgitation present. 6. There is no pericardial effusion. STONE LAYER: Bridget Carroll RDCS
--- NOTE | 2021-09-25 13:18 | P.DS ---
Providers Date of admission: 09/24/21 21:51 Expected date of discharge: 09/25/21 Attending physician: Baylee Vega MD Consults: 09/24/21 21:27 Consult Physician Routine Consulting Provider: [facility] Consult Reason/Comments: Chest Pain, h/o HTN and Smoker Do you want consulting provider notified?: Yes, Notify in am Primary care physician: [facility] Course: 46-year-old female with past medical history of high blood pressure, fibromyalgia Patient comes in upon recommendation of her primary care doctor due to her complaints of chest pain upon evaluation by her primary care doctor he found that her EKG showing sinus tachycardia for which he recommended that she discuss the hospital for evaluation. She reports that the day before at around 11 PM she started feeling that her heart is pounding and this has lasted throughout the day and asked day was associated with some feeling nauseous and dizzy in the morning she had one episode of vomiting nonbloody nonbilious. This continued throughout the day for which trigger that she goes to her primary care doctor for evaluation. She describes the pain as left-sided and radiates to the back and left arm and right digits 9 out of 10 in severity sharp pain. Especially on the right side when she takes a deep breath. This pain started all of a sudden while she was resting doing nothing She denies any cardiac disease in the past she denies any cardiac workup in the past. She admits to tobacco smoking and marijuana denies any heavy alcohol Patient was evaluated by cardiology, 2-D echocardiogram was reviewed an EKG was reviewed. At this and the patient is a very discharged from their perspective. She does have a event monitor placed and is asked to follow-up palpation. She denies any active chest pain, shortness of breath or palpitations. Stable she is also follow-up with field return repairer and PCP within 1 week of discharge. Patient Condition at Discharge: Serious Plan - Discharge Summary Discharge Rx Participant: No New Discharge Prescriptions: New Atorvastatin [Lipitor] 40 mg PO DAILY #30 tab Continue amLODIPine [Norvasc] 5 mg PO DAILY Pantoprazole Sodium [Protonix] 40 mg PO DAILY QUEtiapine [SEROquel] 50 mg PO HS PRN PRN Reason: SLEEP Escitalopram [Lexapro] 20 mg PO HS hydrOXYzine HCL [Atarax] 10 - 20 mg PO TID PRN PRN Reason: Anxiety Discharge Medication List Pantoprazole Sodium [Protonix] 40 mg PO DAILY 05/14/20 [History] amLODIPine [Norvasc] 5 mg PO DAILY 05/14/20 [History] Escitalopram [Lexapro] 20 mg PO HS 09/24/21 [History] QUEtiapine [SEROquel] 50 mg PO HS PRN 09/24/21 [History] hydrOXYzine HCL [Atarax] 10 - 20 mg PO TID PRN 09/24/21 [History] Atorvastatin [Lipitor] 40 mg PO DAILY #30 tab 09/25/21 [Rx] Follow up Appointment(s)/Referral(s): Wen Ford MD [STAFF PHYSICIAN] - 1 Week Robert Gardner [Primary Care Provider] - 1-2 days Discharge Disposition: HOME SELF-CARE
[2021-09-25 15:49] LABS: Chol/HDL Ratio 6.17 Ratio
[2021-09-25] MEDS ORDERED: ESCITALOPRAM 20 MG TAB PO SCH (21:00)
== END 2021-09-25 14:04 | disposition home or self-care (01) ==
LOC: EC 17:14 → 6NMEDSUR 21:51 → 3SCARD 09-25 01:06
PROVIDERS: ADMIT Internal Medicine; ATTEND Internal Medicine
DX: R07.89 Other chest pain (principal); I08.3 Combined rheumatic disorders of mitral, aortic and tricuspid valves; M25.511 Pain in right shoulder; I10 Essential (primary) hypertension; F17.210 Nicotine dependence, cigarettes, uncomplicated; K21.9 Gastro-esophageal reflux disease without esophagitis; Z20.822 Contact with and (suspected) exposure to COVID-19; E03.9 Hypothyroidism, unspecified; R42 Dizziness and giddiness; R11.2 Nausea with vomiting, unspecified; E66.9 Obesity, unspecified; Z68.28 Body mass index [BMI] 28.0-28.9, adult; F41.9 Anxiety disorder, unspecified; F12.90 Cannabis use, unspecified, uncomplicated; R00.2 Palpitations; F32.A Depression, unspecified; M79.7 Fibromyalgia; M54.30 Sciatica, unspecified side; Z71.6 Tobacco abuse counseling; Z71.51 Drug abuse counseling and surveillance of drug abuser; Z79.899 Other long term (current) drug therapy; Z88.6 Allergy status to analgesic agent; Z98.891 History of uterine scar from previous surgery; Z82.5 Family history of asthma and other chronic lower respiratory diseases; Z82.49 Family history of ischemic heart disease and other diseases of the circulatory system; Z80.9 Family history of malignant neoplasm, unspecified
CPT/HCPCS: 99285; 96372; 36415; 93005; 93306; 93270; 85379; 80061; 80053; 80048; 84443; 83735; 84484 ×2; 85025 ×2; 85610; 85730; 81003; 81025; 83036; 87635; 71046; G0378 ×2; J1644

== ENCOUNTER 2023-10-12 22:55 | Emergency (ER) | payer OTHER ==
[2023-10-12 23:38] VITALS: TEMP 98.3
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
[2023-10-13] MEDS: HYDROcodone/APAP 5-325MG 1 EACH TAB PO STA (00:47)
[2023-10-13 01:37] VITALS: BP 148/76; PULSE 76; RESP 15
== END 2023-10-13 01:16 | disposition home or self-care (01) ==
LOC: EC 22:55
DX: S01.81XA Laceration without foreign body of other part of head, initial encounter (principal); S09.90XA Unspecified injury of head, initial encounter; I48.91 Unspecified atrial fibrillation; I10 Essential (primary) hypertension; K21.9 Gastro-esophageal reflux disease without esophagitis; F32.A Depression, unspecified; F17.200 Nicotine dependence, unspecified, uncomplicated; F12.90 Cannabis use, unspecified, uncomplicated; Z79.899 Other long term (current) drug therapy; Z88.8 Allergy status to other drugs, medicaments and biological substances; Y04.0XXA Assault by unarmed brawl or fight, initial encounter
CPT/HCPCS: 70450; 71046; 72125; 99284

== ENCOUNTER → 2024-01-30 | Outpatient (CLI) | payer OTHER ==
[2024-01-30 11:24] LABS: Basophils # (A) 0.1 k/uL (0-0.2); Basophils % (A) 1 %; Eosinophils # (A) 0.1 k/uL (0-0.7); Eosinophils % (A) 1 %; HCT 47.7 % (34.0-46.0); HGB 14.8 gm/dL (11.4-16.0); Lymphocytes # (A) 2.2 k/uL (1.0-4.8); Lymphocytes % (A) 26 %; MCH 30.9 pg (25.0-35.0); MCV 99.6 fL (80.0-100.0); Mean Platelet Volume 8.9; Monocytes # (A) 0.5 k/uL (0-1.0); Monocytes % (A) 6 %; Neutrophils # (A) 5.5 k/uL (1.3-7.7); Neutrophils % (A) 65 %; Platelet Count 205 k/uL (150-450); RBC 4.79 m/uL (3.80-5.40); RDW 12.8 % (11.5-15.5); WBC 8.5 k/uL (3.8-10.6)
[2024-01-30 15:38] LABS: ALT 8 U/L (8-44); AST 17 U/L (13-35); Albumin 4.5 g/dL (3.8-4.9); Albumin/Globulin Ratio 2.05 Ratio (1.60-3.17); Alkaline Phosphatase 80 U/L (41-126); Blood Urea Nitrogen 8.6 mg/dL (9.0-27.0); Calcium 9.9 mg/dL (8.7-10.3); Carbon Dioxide 24.3 mmol/L (21.6-31.8); Chloride 106 mmol/L (96-109); Chol/HDL Ratio 4.89 Ratio; Globulin 2.2 g/dL (1.6-3.3); Glucose 80 mg/dL (70-110); LDL Cholesterol,Calculated 147.2 mg/dL (0.0-131.0); Potassium 4.5 mmol/L (3.5-5.5); Sodium 141 mmol/L (135-145); T4, Free (Free Thyroxine) 1.02 ng/dL (0.80-1.80); Total Bilirubin 0.3 mg/dL (0.3-1.2); Total Protein 6.7 g/dL (6.2-8.2)
== END | disposition home or self-care (01) ==
LOC: LABWHC1 10:01
PROVIDERS: ATTEND Family Medicine
DX: I10 Essential (primary) hypertension (principal); E05.90 Thyrotoxicosis, unspecified without thyrotoxic crisis or storm
CPT/HCPCS: 36415; 80053; 80061; 83036; 84439; 84443; 84481; 85025

== ENCOUNTER → 2024-03-12 | Outpatient (CLI) | payer OTHER ==
--- NOTE | 2024-04-09 15:37 | MR ---
Site ID synapse default Patient Sabine Baker ID [id number] Age/Gender: 48Y, F Order # N/A Procedure MRI BRAIN WO CONTRAST Date 03/12/2024 7:40:57 AM EXAMINATION TYPE: MR brain wo con DATE OF EXAM: 03/22/2024 4:49 PM COMPARISON: CT brain C-spine 10/13/2023. CLINICAL INDICATION: Female, 48 year old with history of headaches. TECHNIQUE: Multi planar, multi sequence imaging was performed through the brain. No gadolinium was gi homa. FINDINGS: The jules-white junctions, ventricular system, and cisterns appear unremarkable. A few T2/FLAIR hyper intense subcortical white matter foci identified within the left frontal and parietal lobes. Largest within the left frontal lobe measures up to 4 mm (series 601, image 18). Approximately 5 lesions.. Mi dline structures show no abnormality. Diffusion-weighted imaging shows no evidence of restricted diff usion. The susceptibility weighted images do not reveal any evidence for micro-hemorrhage. The bone marrow signal is within normal limits. The is unremarkable. Left inferior maxillary sinus 1. 1 cm mucous retention cyst. IMPRESSION: 1. No evidence of intracranial mass or acute/subacute infarct. 2. A few nonspecific subcortical white matter foci. Etiologies include small vessel ischemic disease versus migraines versus demyelinating disorder.
== END | disposition home or self-care (01) ==
LOC: RADMRIMAIN 08:20
PROVIDERS: ATTEND Family Medicine
DX: G43.909 Migraine, unspecified, not intractable, without status migrainosus (principal); R90.82 White matter disease, unspecified
CPT/HCPCS: 70551

== ENCOUNTER → 2024-05-07 | Outpatient (CLI) | payer OTHER ==
--- NOTE | 2024-05-14 08:53 | MM ---
Reason for Exam: Screening (asymptomatic). Last mammogram was performed 1 year(s) and 5 month(s) ago. Patient History: Menarche at age 14. First Full-Term at age 19. Maternal grandmother had breast cancer. Maternal grandmother had breast cancer. Paternal aunt had breast cancer. Paternal grandmother had ovarian cancer at or over age 50. Last menstrual period: 05/07/2024 Risk Values: Harper 5 year model risk: 0.6%. NCI Lifetime model risk: 6.8%. Prior Study Comparison: 07/15/2017 Bilateral Screening Mammogram, [facility]. 01/24/2020 Bilateral Screening Mammogram, [facility]. 12/10/2022 Bilateral Screening Mammogram, [facility] . Tissue Density: There are scattered areas of fibroglandular density. Findings: Analyzed By CAD. Left breast biopsy clip. Right breast: There is no suspicious group of microcalcifications or new suspicious mass. Left breast: There is no suspicious group of microcalcifications or new suspicious mass. Overall Assessment: Negative, BI-RAD 1 Management: Screening Mammogram of both breasts in [address] [facility] will attempt to contact patient to return for supplemental views and ultrasound if indicated. Patient should continue monthly self-breast exams. A clinical breast exam by your physician is recommended on an annual basis. This exam should not preclude additional follow-up of suspicious palpable abnormalities. Note on Harper scores and lifetime risk: 1. A Harper score greater than 3% is considered moderate risk. If this is the case, consider specialist referral to assess eligibility for a risk reducing agent. 2. If overall lifetime risk for the development of breast cancer is 20% or higher, the patient may qualify for future screening with alternating mammogram and breast MRI. [facility], , 05/14/2024 8:49 AM. Electronically signed and approved by: Khanh Cervantes DO
== END | disposition home or self-care (01) ==
LOC: RADMAMWWP 10:56
PROVIDERS: ATTEND Family Medicine
DX: Z12.31 Encounter for screening mammogram for malignant neoplasm of breast
CPT/HCPCS: 77067

== ENCOUNTER → 2024-06-19 | Outpatient (CLI) | payer OTHER ==
[2024-06-19 15:22] LABS: Blood Urea Nitrogen 8.1 mg/dL (9.0-27.0); Carbon Dioxide 25.2 mmol/L (21.6-31.8); Chloride 110 mmol/L (96-109); Potassium 4.5 mmol/L (3.5-5.5); Sodium 142 mmol/L (135-145)
[2024-06-19 16:16] LABS: HCT 43.9 % (37.2-46.3); MCH 31.2 pg (27.0-32.0); MCHC 31.9 g/dL (32.0-37.0); MCV 97.8 FL (80.0-97.0); Mean Platelet Volume 10.1 FL (9.5-12.2); NRBC Per 100 WBC 0 X 10*3/uL (0.00-0.01); Platelet Count 255 X 10*3/uL (140-440); RBC 4.49 X 10*6/uL (4.10-5.20); RDW 12.4 % (11.5-14.5); WBC 10.52 X 10*3/uL (4.50-10.00)
== END | disposition home or self-care (01) ==
LOC: LABPAT 08:46
PROVIDERS: ATTEND Internal Medicine Interventional Cardiology
DX: Z01.812 Encounter for preprocedural laboratory examination (principal); I34.0 Nonrheumatic mitral (valve) insufficiency
CPT/HCPCS: 80051; 82565; 84520; 85027

== ENCOUNTER → 2024-06-21 | Day surgery (SDC) | payer OTHER ==
[~2024-06-21] MED LIST changes: +ALPRAZolam 0.25 MG TAB PO PRN; +ALPRAZolam 0.5 MG TAB PO PRN; -LACTATED RINGERS 1,000 ML IV SCH; +NITROGLYCERIN SL TABS 0.4 MG TAB SUBLINGUAL PRN; +RX INFO: IV CONTRAST WAS GIVEN 1 EACH MISC MISCELLANE PRN; +SODIUM CHLORIDE 0.9% 1,000 ML IV SCH
[2024-06-21] MEDS: ASPIRIN 325 MG TAB PO STA (08:41)
[2024-06-21] MEDS: ATORVASTATIN 80 MG TAB PO STA (08:42)
[2024-06-21] MEDS: METOPROLOL TARTRATE 25 MG TAB PO STA (08:45)
[2024-06-21 08:59] VITALS: TEMP 97.9
[2024-06-21] MEDS: SODIUM CHLORIDE 0.9% 1,000 ML in EMPTY BAG 1 BAG IV SCH (09:21)
[2024-06-21] MEDS: HEPARIN SODIUM,PORCINE (1 ML) 2,500 UNIT in SODIUM CHLORIDE 0.9% 250 ML IRRIGATION PRN (09:25)
[2024-06-21] MEDS: HEPARIN SODIUM,PORCINE 10,000 UNIT in SODIUM CHLORIDE 0.9% 1,000 ML IRRIGATION PRN (09:25)
[2024-06-21] MEDS: BENZOCAINE SPRAY 1 EACH MM ONE ×2 (09:36→09:38)
[2024-06-21] MEDS: MIDAZOLAM 2 MG/2 ML VIAL IVP ONE ×2 (09:37→09:42)
[2024-06-21] MEDS: fentaNYL (PF) 50 MCG/ML 2 ML AMP IVP ONE (09:38)
[2024-06-21] MEDS: LIDOCAINE 1% INJ 10MG/ML (20 ML MDV) SQ ONE (10:01)
[2024-06-21] MEDS: VERAPAMIL SYRINGE (5 MG/10 ML) INTRAARTER ONE (10:02)
[2024-06-21] MEDS: HEPARIN SODIUM 1,000 UN/ML (10ML VL) IVP ONE (10:05)
[2024-06-21] MEDS: NITROGLYCERIN 1000MCG/10ML SYRINGE INTRACORON ONE (10:07)
[2024-06-21] MEDS: hydrALAZINE HCL 20 MG/ML 1 ML VIAL IVP ONE ×2 (10:07→10:13)
[2024-06-21] MEDS: IOPAMIDOL-370 100ML BTL INJ ONE (10:17)
--- NOTE | 2024-06-21 13:16 | P.PCN ---
Date of Procedure: 06/21/24 Operative Findings: Transesophageal echocardiogram Performing physician Loco Ochoa MD Indication Valvular heart disease with aortic insufficiency Complication None Level of sedation Moderate with sedation length of rales minutes Procedure description After obtaining informed consent the patient was brought to the cardiac [place]. The patient's was turned into left lateral position. Subsequently a bite guard was placed and the patient's throat was sprayed using lidocaine. Subsequently heart esophageal echocardiogram was performed after sedation was done. We did a 2D echo as well as color Doppler and pulse-wave Doppler and the procedure was completed with no complication Conclusion Normal biventricular systolic function with an EF between 55 to 60% Trileaflet aortic valve with wide open aortic insufficiency Mild to moderate mitral regurgitation Mild to moderate tricuspid regurgitation Intact left atrial appendage Intact intra-atrial septum
--- NOTE | 2024-06-21 13:19 | P.PCN ---
Date of Procedure: 06/21/24 Operative Findings: Cardiac catheterization report Performing physician Loco Ochoa MD Procedure performed Selective right and left coronary angiogram and left heart catheterization An aortic root angiogram Ultrasound-guided access of the right radial artery Indication Valvular heart disease Complication None Level of sedation Moderate with sedation length of 15 minutes Procedure description After obtaining an informed consent the patient was brought to the cardiac Semi Driver. The right radial artery was cannulated using micropuncture technique under ultrasound guidance the micropuncture wire passed easily then I placed a 6 Khmer 11 cm sheath and I gave the patient 2 mg of verapamil and 5000's of heparin IV. Selective right and left coronary angiogram performed using JR4 and JL 3.5 catheters and left heart catheterization was performed using the JR4 catheter but aortic root angiogram was performed using the 5 Khmer pigtail catheter. The procedure was completed with no complication Selective coronary angiogram The RCA is a large-caliber vessel and the dominant vessel with severe lesion involving the proximal to midportion and The left main appears to be angiographically normal The LAD is a large-caliber vessel and appears to be angiographically normal. The 2 diagonal branch which appears to be normal with no evidence of high-grade stenosis The LCx is a large-caliber vessel nondominant vessel also appears to be angiographically normal with no evidence of high-grade stenosis Hemodynamic The LVEDP was 20 mmHg with no significant gradient across the aortic valve Aortic root angiogram Was performed in the CAYLA projection and using a power injection with evidence of 4+ aortic insufficiency Conclusion 1. Severe disease involving the proximal to mid RCA 2. 4+ aortic insufficiency
[2024-06-21] MEDS: ONDANSETRON 4 MG/2 ML VIAL IM STA (13:22)
[2024-06-21] MEDS: ONDANSETRON 4 MG/2 ML VIAL IVP PRN (13:23)
[2024-06-21 16:47] VITALS: BP 133/63; PULSE 62; RESP 16
== END ==
LOC: CATHCVL 07:53
PROVIDERS: ATTEND Internal Medicine Interventional Cardiology
DX: I08.3 Combined rheumatic disorders of mitral, aortic and tricuspid valves (principal); I10 Essential (primary) hypertension; E78.5 Hyperlipidemia, unspecified; F17.210 Nicotine dependence, cigarettes, uncomplicated; Z88.9 Allergy status to unspecified drugs, medicaments and biological substances; Z82.49 Family history of ischemic heart disease and other diseases of the circulatory system; Z79.899 Other long term (current) drug therapy
CPT/HCPCS: 93312; 93320; 93325; 93458; 93567; 81025; C1769; C1894; J2250; J0360; J1644 ×3; J2405; J2003; J3010; Q9967; J2305

== ENCOUNTER 2024-07-01 18:46 | Emergency (ER) | payer OTHER ==
--- NOTE | 2024-07-01 20:20 | ED ---
Chest Pain HPI - General Chief Complaint: Chest Pain Stated Complaint: Back Pain Time Seen by Provider: 07/01/24 20:13 Source: patient, RN notes reviewed, old records reviewed Mode of arrival: ambulatory Limitations: no limitations - History of Present Illness Initial Comments: This is a 48-year-old female to the ER for evaluation of chest pain. Patient with left-sided chest pain here in the ER she believes she does have history of heart disease but chest pain is resolved upon arrival. No travel no sick contacts no fever cough or congestion no diaphoresis or shortness of breath. MD Complaint: chest pain -: hour(s) Onset: during rest Pain Location: left chest Pain Radiation: none Severity: moderate Severity scale (1-10): 4 Quality: tightness Consistency: now resolved Improves With: nothing Worsens With: nothing Anginal Symptoms: other (0) Other Symptoms: other (0) Treatments Prior to Arrival: none - Related Data Home Medications Medication Instructions Recorded Confirmed QUEtiapine [SEROquel] 50 mg PO HS PRN 09/24/21 06/21/24 hydrOXYzine HCL [Atarax] 10 - 20 mg PO TID PRN 09/24/21 06/21/24 Aspirin/Acetaminophen [Goody's 1 dose PO Q4H PRN 06/20/24 06/21/24 Back-Body Pain Pwd Pkt] Budesonide-Formot 160-4.5 Mcg 2 inh INHALATION BID 06/20/24 06/20/24 [Symbicort 160-4.5 Mcg Inhaler] DULoxetine HCL [Cymbalta] 30 mg PO DAILY 06/20/24 06/20/24 Levothyroxine Sodium [Synthroid] 100 mcg PO DAILY 06/20/24 06/20/24 Metoprolol Tartrate [Lopressor] 25 mg PO BID 06/20/24 06/20/24 Previous Rx's Medication Instructions Recorded Atorvastatin [Lipitor] 40 mg PO DAILY #30 tab 09/25/21 Allergies Allergy/AdvReac Type Severity Reaction Status Date / Time prochlorperazine Allergy LOCK JAW Verified 07/01/24 19:46 [From Compazine] prochlorperazine edisylate Allergy LOCK JAW Verified 07/01/24 19:46 [From Compazine] prochlorperazine maleate Allergy LOCK JAW Verified 07/01/24 19:46 [From Compazine] Review of Systems ROS Statement: Those systems with pertinent positive or pertinent negative responses have been documented in the HPI. ROS Other: All systems not noted in ROS Statement are negative. EKG Findings - EKG Comments: EKG Findings:: EKG is sinus 72 IN 158 QRS 66 QTc 421 - EKG Results: EKG: interpreted by LUIS Past Medical History Past Medical History: Fibromyalgia, GERD/Reflux, Hypertension, Musculoskeletal Disorder Additional Past Medical History / Comment(s): upper abdomen pain when pressure a pplied,hx TMJ, hyper mobile joint disorder, sciatica. History of Any Multi-Drug Resistant Organisms: None Reported Past Surgical History: Section, Heart Catheterization, Orthopedic Surgery Additional Past Surgical History / Comment(s): Right knee surgery, PAIN CLINIC PROCEDURES. Past Anesthesia/Blood Transfusion Reactions: No Reported Reaction Past Psychological History: Depression Smoking Status: Current every day smoker Past Alcohol Use History: Occasional Past Drug Use History: Marijuana - Past Family History Father Family Medical History: Asthma, Cancer, Congestive Heart Failure (CHF) Additional Family Medical History / Comment(s): Two types of cancer. Mother Family Medical History: Myocardial Infarction (NH) Additional Family Medical History / Comment(s): from heart attack. General Exam Limitations: no limitations General appearance: alert, in no apparent distress, anxious Head exam: Present: atraumatic, normocephalic, normal inspection Eye exam: Present: normal appearance, PERRL, EOMI. Absent: scleral icterus, conjunctival injection, periorbital swelling ENT exam: Present: normal exam, mucous membranes moist Neck exam: Present: normal inspection. Absent: tenderness, meningismus, lymphadenopathy Respiratory exam: Present: normal lung sounds bilaterally. Absent: respiratory distress, wheezes, rales, rhonchi, stridor Cardiovascular Exam: Present: regular rate, normal rhythm, normal heart sounds. Absent: systolic murmur, diastolic murmur, rubs, gallop, clicks GI/Abdominal exam: Present: soft, normal bowel sounds. Absent: distended, tenderness, guarding, rebound, rigid Extremities exam: Present: normal inspection, full ROM, normal capillary refill. Absent: tenderness, pedal edema, joint swelling, calf tenderness Back exam: Present: normal inspection Neurological exam: Present: alert, oriented X3, CN II-XII intact Psychiatric exam: Present: normal affect, normal mood Skin exam: Present: warm, dry, intact, normal color. Absent: rash Course Vital Signs 07/01/24 07/01/24 19:42 21:43 Temperature 98.4 F 98.1 F Pulse Rate 69 60 Respiratory 18 17 Rate Blood Pressure 150/72 163/70 O2 Sat by Pulse 100 100 Oximetry - Reevaluation(s) Reevaluation #1: Medical records reviewed Reevaluation #2: Patient symptoms improved Reevaluation #3: Patient informed of results and questions answered Reevaluation #4: Was pt. sent in by a medical professional or institution (, [facility], [facility] [facility], urgent care, hospital, or [place] health care facility...) When possible be specific @ -no Did you speak to anyone other than the patient for history (EMS, parent, family, police, friend...)? What history was obtained from this source @ -no Did you review nursing and triage notes (agree or disagree)? Why? @ -agree Are old charts reviewed (outside hosp., previous admission, EMS record, old EKG, old radiological studies, urgent care reports/EKG's, [place] health care facility records)? Report findings @ -yes Differential Diagnosis (chest pain, altered mental status, abdominal pain women, abdominal pain men, vaginal bleeding, weakness, fever, dyspnea, syncope, headache, dizziness, GI bleed, back pain, seizure, CVA, palpatations, mental health, musculoskeletal)? @ -prior EKG interpreted by me (3pts min.). @ -yes X-rays interpreted by me (1pt min.). @ -yes negative for acute disease CT interpreted by me (1pt min.). @ -no U/S interpreted by me (1pt. min.). @ -no What testing was considered but not performed or refused? (CT, X-rays, U/S, labs)? Why? @ -none What meds were considered but not given or refused? Why? @ -none Did you discuss the management of the patient with other professionals (professionals i.e. [facility] Rendon, [facility] [facility], lab, RT, psych nurse, social professionals, printer technician, teacher, boat officer, case hardener)? Give summary @ -no Was smoking cessation discussed for >3mins.? @ -no Was critical care preformed (if so, how long)? @ -no Were there social determinants of health that impacted care today? How? (Homelessness, low income, unemployed, alcoholism, drug addiction, transportation, low edu. Level, literacy, decrease access to med. care, alf, rehab)? @ -none Was there de-escalation of care discussed even if they declined (Discuss DNR or withdrawal of care, Hospice)? DNR status @ -no What co-morbidities impacted this encounter? (DM, HTN, Smoking, COPD, CAD, Cancer, CVA, ARF, Chemo, Hep., AIDS, mental health diagnosis, sleep apnea, morbid obesity)? @ -none Was patient admitted / discharged? Hospital course, mention meds given and route, prescriptions, significant lab abnormalities, going to OR and other pertinent info. @ - 48 female to the ER for evaluation of chest pain today. Patient has no acute findings here in the ER feels well and can be discharged home Discharge Undiagnosed new problem with uncertain prognosis? @ -no Drug Therapy requiring intensive monitoring for toxicity (Heparin, Nitro, Insulin, Cardizem)? @ -no Were any procedures done? @ -no Diagnosis/symptom? @ -Chest pain Acute, or Chronic, or Acute on Chronic? @ -Acute Uncomplicated (without systemic symptoms) or Complicated (systemic symptoms)? @ -Complicated Side effects of treatment? @ -no Exacerbation, Progression, or Severe Exacerbation? @ -exacerbation Poses a threat to life or bodily function? How? (Chest pain, USA, NH, pneumonia, PE, COPD, DKA, ARF, appy, cholecystitis, CVA, Diverticulitis, Homicidal, Suicidal, threat to staff... and all critical care pts) @ -yes with chest pain Reevaluation #5: Differential Chest Pain: Stable Angina, Unstable Angina, STEMI, NSTEMI Aortic Dissection, Pneumothorax, Musculoskeletal, Esophageal Spasm GERD, Cholecystitis, Pancreatitis, Zoster, this is not meant to be an all-inclusive list. Chest Pain MDM - MDM 48 female to the ER for evaluation of chest pain today. Patient has no acute findings here in the ER feels well and can be discharged home Disposition Clinical Impression: Chest pain Disposition: HOME SELF-CARE Condition: Undetermined Instructions (If sedation given, give patient instructions): Chest Pain (ED) Is patient prescribed a controlled substance at d/c from ED?: No Referrals: Kevin Malone MD [Primary Care Provider] - 1-2 days Time of Disposition: 21:30
[2024-07-01 20:34] LABS: Basophils # (A) 0.1 k/uL (0-0.2); Basophils % (A) 0 %; Eosinophils # (A) 0.1 k/uL (0-0.7); Eosinophils % (A) 1 %; HCT 45.8 % (34.0-46.0); HGB 15.2 gm/dL (11.4-16.0); Lymphocytes # (A) 2.4 k/uL (1.0-4.8); Lymphocytes % (A) 20 %; MCHC 33.2 g/dL (31.0-37.0); MCV 96.6 fL (80.0-100.0); Mean Platelet Volume 7.8; Monocytes # (A) 0.6 k/uL (0-1.0); Monocytes % (A) 5 %; Neutrophils # (A) 8.5 k/uL (1.3-7.7); Neutrophils % (A) 72 %; Platelet Count 279 k/uL (150-450); RBC 4.74 m/uL (3.80-5.40); RDW 11.9 % (11.5-15.5); WBC 11.9 k/uL (3.8-10.6)
[2024-07-01 20:40] LABS: INR 0.9 (<1.2); Partial Thromboplastin Time 26.8 sec (22.0-30.0)
[2024-07-01 21:10] LABS: ALT 11 U/L (4-34); AST 19 U/L (14-36); African American GFR (CKD) 89 (>60 ml/min/1.73 sqM); Albumin 4.5 g/dL (3.5-5.0); Alkaline Phosphatase 97 U/L (38-126); Anion Gap 8 mmol/L; Blood Urea Nitrogen 8 mg/dL (7-17); Calcium 10.4 mg/dL (8.4-10.2); Carbon Dioxide 25 mmol/L (22-30); Chloride 107 mmol/L (98-107); Glucose 96 mg/dL (74-99); Magnesium 1.9 mg/dL (1.6-2.3); Non-African American GFR(CKD) 78 (>60 ml/min/1.73 sqM); Potassium 4.8 mmol/L (3.5-5.1); Sodium 140 mmol/L (137-145); Total Bilirubin 0.3 mg/dL (0.2-1.3); Total Protein 7.2 g/dL (6.3-8.2)
--- NOTE | 2024-07-01 21:14 | XR ---
EXAMINATION TYPE: XR chest 2V DATE OF EXAM: 07/01/2024 9:07 PM COMPARISON: Multiple prior chest radiographs, most recently dated 10/13/2023. CLINICAL INDICATION: Female, 48 years old with history of Chest Pain; [facility] TECHNIQUE: XR chest 2V Frontal and lateral views of the chest. FINDINGS: Lungs/Pleura: There is no evidence of pleural effusion, focal consolidation, or pneumothorax. Pulmonary vascularity: Unremarkable. Heart/mediastinum: Cardiomediastinal silhouette is unremarkable. Musculoskeletal: No acute osseous pathology. Other findings: None IMPRESSION: No acute cardiopulmonary disease/process. [facility], , 07/01/2024 9:12 PM
[2024-07-01 21:44] VITALS: BP 163/70; PULSE 60; RESP 17; TEMP 98.1
== END 2024-07-01 21:44 | disposition home or self-care (01) ==
LOC: EC 18:46
DX: R07.89 Other chest pain (principal); F17.200 Nicotine dependence, unspecified, uncomplicated; Z88.8 Allergy status to other drugs, medicaments and biological substances
CPT/HCPCS: 36415; 71046; 80053; 83735; 84484; 85025; 85610; 85730; 93005; 99285

== ENCOUNTER → 2024-08-07 | Outpatient (CLI) | payer OTHER ==
--- NOTE | 2024-08-07 11:34 | US ---
EXAMINATION TYPE: US vein mapping BILAT DATE OF EXAM: 08/07/2024 11:21 AM COMPARISON: NONE CLINICAL INDICATION: Female, 48 years old with history of PRE SURG - OPEN HEART; open heart, Preop- [facility] TECHNIQUE: Grayscale and color Doppler imaging of the lower extremity venous system. SIDE PERFORMED: Bilateral FINDINGS: PATIENT HISTORY: Smoker: Yes Heart Disease: Yes Previous DVT: No Vascular Surgery: No Discoloration: n Hypertension: Yes Diabetes: No Paralysis: No Varicosities: Yes Edema: No DUPLEX FINDINGS: Greater Saphenous: Color flow seen Measurements in mm: Right Greater Saphenous: Groin: 3x3 mm High Thigh: 3x3 mm Mid Thigh: 2x2 mm Above Knee: 2x2 mm Knee: 3x3 mm Below Knee: 2x3 mm Mid Calf: 2x2 mm At Ankle: 1x1 mm Left Greater Saphenous: Groin: 5x7 mm High Thigh: 3x4 mm Mid Thigh: 4x5 mm Above Knee: 4x4 mm Knee: 3x4 mm Below Knee: 2x2 mm Mid Calf: 2x3 mm At Ankle: 2x2 mm IMPRESSION: 1. No evidence for occlusion. 2. GSV measurements listed above. 3. Performing surgeon to determine viability as conduit. [facility], , 08/07/2024 11:31 AM
--- NOTE | 2024-08-07 12:17 | CT ---
EXAMINATION TYPE: CT chest wo con DATE OF EXAM: 08/07/2024 COMPARISON: Chest radiograph 07/01/2024 HISTORY: 48-year-old female I25.10 ATHSCL HEART DISEASE I35.0 NONRHEUMATIC AOR, PRESURGICAL HEART SX TECHNIQUE: Contiguous axial scanning of the chest without IV contrast. Coronal/sagittal reconstructio ns performed. CT DLP: 188.50mGycm. Automatic exposure control utilized for a dose reduction. FINDINGS: The heart is normal size with trace anterior pericardial fluid. Aorta normal caliber with conventional arch vessel branching anatomy. No thoracic lymphadenopathy by CT size criteria. Scattered mild to moderate emphysematous change. No consolidation or pleural effusion. 4 mm lateral left midlung pulmonary nodule, axial image 23. Otherwise, no suspicious pulmonary nodule. Visualized upper abdomen shows no gross abnormality. Bones: Scattered mild degenerative disc disease in the thoracic spine. IMPRESSION: 1. A nonspecific 4 mm left mid lung pulmonary nodule. Six-month follow-up CT chest to reassess. 2. COPD with [id number] emphysema. [facility], , 08/07/2024 12:15 PM
[2024-08-07 12:36] LABS: INR 0.9 (<1.2); Partial Thromboplastin Time 26.2 sec (22.0-30.0); Prothrombin Time 10.2 sec (10.0-12.5)
[2024-08-07 15:51] LABS: Basophils # (A) 0.04 X 10*3/uL (0.00-0.10); Basophils % (A) 0.5 %; Eosinophils # (A) 0.09 X 10*3/uL (0.04-0.35); HGB 13.5 g/dL (12.0-15.0); Lymphocytes # (A) 2.08 X 10*3/uL (0.90-5.00); Lymphocytes % (A) 23.4 %; MCH 30.4 pg (27.0-32.0); MCHC 32.1 g/dL (32.0-37.0); MCV 94.6 FL (80.0-97.0); Mean Platelet Volume 10.4 FL (9.5-12.2); Monocytes # (A) 0.66 X 10*3/uL (0.20-1.00); Monocytes % (A) 7.4 %; NRBC Per 100 WBC 0 X 10*3/uL (0.00-0.01); Neutrophils # (A) 5.97 X 10*3/uL (1.80-7.70); Neutrophils % (A) 67.4 %; Platelet Count 237 X 10*3/uL (140-440); RBC 4.44 X 10*6/uL (4.10-5.20); RDW 11.9 % (11.5-14.5); WBC 8.87 X 10*3/uL (4.50-10.00)
[2024-08-07 15:58] LABS: Blood Urea Nitrogen 9.1 mg/dL (9.0-27.0); Carbon Dioxide 23.9 mmol/L (21.6-31.8); Chloride 107 mmol/L (96-109); Chol/HDL Ratio 2.73 Ratio; Glucose 83 mg/dL (70-110); LDL Cholesterol,Calculated 67.6 mg/dL (0.0-131.0); Potassium 4.3 mmol/L (3.5-5.5); Sodium 141 mmol/L (135-145); T4, Free (Free Thyroxine) 1.46 ng/dL (0.80-1.80); VLDL Calculation 17.32 mg/dL (5.00-40.00)
[2024-08-07 16:07] LABS: Hepatitis A Antibody IgM Nonreactive (Nonreactive); Hepatitis B Core IgM Nonreactive (Nonreactive); Hepatitis B Surface Antigen Nonreactive (Nonreactive); Hepatitis C IgG Antibody Nonreactive (Nonreactive)
[2024-08-07 16:35] LABS: Appearance,Urine Clear (Clear); Bilirubin,Urine Negative (Negative); Blood,Urine Negative (Negative); Color,Urine Yellow (Yellow); Ketones,Urine Trace (Negative); Nitrite,Urine Negative (Negative); Specific Gravity,Urine 1.027 (1.001-1.030)
== END | disposition home or self-care (01) ==
LOC: RADCTMAIN 09:21
PROVIDERS: ATTEND Surgery
DX: Z01.810 Encounter for preprocedural cardiovascular examination (principal); I25.10 Atherosclerotic heart disease of native coronary artery without angina pectoris; I35.0 Nonrheumatic aortic (valve) stenosis; J43.9 Emphysema, unspecified; I10 Essential (primary) hypertension; R91.1 Solitary pulmonary nodule; F17.200 Nicotine dependence, unspecified, uncomplicated
CPT/HCPCS: 71250; 80051; 80061; 80074; 81003; 82565; 82947; 84439; 84443; 84520; 85025; 85610; 85730; 87070; 87086; 93970; 94150

== ENCOUNTER → 2024-08-21 | Outpatient (CLI) | payer OTHER ==
--- NOTE | 2024-08-21 13:46 | XR ---
EXAMINATION TYPE: XR chest 2V DATE OF EXAM: 08/21/2024 1:40 PM COMPARISON: 07/01/2024 CLINICAL INDICATION: Female, 48 years old with history of I35.0 NONRHEUMATIC AORTIC (VALVE) STENOSIS, TECHNIQUE: XR chest 2V view(s) obtained. FINDINGS: The heart size is normal. The pulmonary vasculature is normal. The lungs are clear. IMPRESSION: 1. No acute pulmonary process. [facility], , 08/21/2024 1:43 PM
--- NOTE | 2024-08-21 14:50 | P.PN ---
Progress Note - Text Progress Note Date: 08/21/24 A 5 m walk test was completed with the patient, the patient tolerated well, no complaints of chest pain or shortness of breath. Time 1: 2.03 seconds, time 2: 2.30 seconds, time 3: 2.08 seconds. An STS risk or was calculated and discussed with the patient. A clinical frailty score was calculated and equal to 1.
== END | disposition home or self-care (01) ==
LOC: LABWHC1 11:03
PROVIDERS: ATTEND Surgery
DX: I25.10 Atherosclerotic heart disease of native coronary artery without angina pectoris (principal); I35.0 Nonrheumatic aortic (valve) stenosis; Z22.322 Carrier or suspected carrier of Methicillin resistant Staphylococcus aureus
CPT/HCPCS: 36415; 71046; 83036; 83735; 86850; 86900; 86901; 86920

== ENCOUNTER → 2024-09-17 | Outpatient (CLI) | payer OTHER ==
[2024-09-17 17:07] LABS: INR 2.8 (<1.2); Prothrombin Time 27.5 sec (10.0-12.5)
== END | disposition home or self-care (01) ==
LOC: LABWHC1 16:11
PROVIDERS: ATTEND Nurse Practitioner Acute Care
DX: Z79.01 Long term (current) use of anticoagulants (principal)
CPT/HCPCS: 36415; 85610

== ENCOUNTER → 2024-09-20 | Outpatient (CLI) | payer OTHER ==
[2024-09-20 16:58] LABS: INR 3.7 (<1.2); Prothrombin Time 36.7 sec (10.0-12.5)
== END | disposition home or self-care (01) ==
LOC: LABWHC1 16:23
PROVIDERS: ATTEND Nurse Practitioner Acute Care
DX: Z51.81 Encounter for therapeutic drug level monitoring (principal)
CPT/HCPCS: 36415; 85610

== ENCOUNTER → 2024-11-15 | Outpatient (CLI) | payer OTHER ==
[2024-11-15 15:34] LABS: ALT 26 U/L (8-44); AST 26 U/L (13-35); Chol/HDL Ratio 2.41 Ratio; LDL Cholesterol,Calculated 78.3 mg/dL (0.0-131.0)
== END | disposition home or self-care (01) ==
LOC: LABWHC1 09:58
PROVIDERS: ATTEND Internal Medicine Interventional Cardiology
DX: E78.2 Mixed hyperlipidemia (principal)
CPT/HCPCS: 36415; 80061; 84450; 84460